=== PATIENT | male | born 1940 | race Caucasian/White ===

== ENCOUNTER 2017-11-19 15:48 | Inpatient (IN) | payer MEDICARE ==
[2017-11-19] MEDS ORDERED: Morphine INJ* 4 MG/ML 1 ML CARPUJECT IV ONE ×3 (18:14→19:57)
[2017-11-19] MEDS ORDERED: Ondansetron INJ* 2 MG/ML VIAL IV ONE ×2 (18:14→19:56)
--- NOTE | 2017-11-19 18:19 | ED ---
Abdominal Pain/Male - HPI Summary HPI Summary: This 77-year-old male presents with abdominal pain for 3 days. He states the pain started after he ate something spicy. He states it was a sharp pain and now is a constant pain. He has never had this pain before. He states he does not feel that there is a dialysis type pain. He states he does peritoneal dialysis every night. He has not missed any dialysis. He states the past week has been having diarrhea. He states his stools have been watery. He admits to nausea that started the past 3 days. He denies any vomiting. He admits to decrease in appetite. He denies any fevers. He denies any chest pain. His shortness of breath is unchanged from baseline. He denies any flank pain. He is able to make urine after self catheterize. He has been taking hydrocodone without relief. He had surgery for peritoneal catheter. He may have had his appendix removed when younger. He has PMH of ESRD, HTN. He is not diabetic. He has had a previous SBO. He has had a hernia repair in the past. - History of Current Complaint Chief Complaint: French Stated Complaint: ABD PAIN Time Seen by Provider: 11/19/17 17:50 Pain Intensity: 8 - Allergies/Home Medications Allergies/Adverse Reactions: Allergies Allergy/AdvReac Type Severity Reaction Status Date / Time MS Penicillins [Penicillins] Allergy Unknown Verified 11/20/15 18:57 Reaction Details Home Medications: Home Medications Lisinopril TAB* [Prinivil TAB*] 20 mg PO DAILY 11/19/17 [History Confirmed 11/19] Metoprolol Succinate XL TAB* [Toprol XL TAB*] 25 mg PO DAILY 11/19/17 [History Confirmed 11/19/17] Sodium Bicarbonate (ANTACID)* 650 mg PO TID PRN 11/19/17 [History Confirmed ] Zolpidem TAB* [Ambien TAB*] 10 mg PO BEDTIME PRN 11/19/17 [History Confirmed ] amLODIPine TAB* [Norvasc 5 mg TAB*] 2.5 mg PO DAILY 11/19/17 [History Confirmed 11/19/17] hydrOXYzine HCL TAB* [Atarax 25 MG TAB*] 25 mg PO QID PRN 11/19/17 [History Confirmed 11/19/17] PMH/Surg Hx/FS Hx/Imm Hx Endocrine/Hematology History: Denies: Hx Diabetes, Hx Thyroid Disease, Hx Unexplained Bleeding Cardiovascular History: Reports: Hx Hypertension, Other Cardiovascular Problems/ Disorders - states Afib on and off Denies: Hx Cardiac Arrest, Hx Cardiomegaly, Hx Congenital Heart Disease, Hx Congestive Heart Failure, Hx Coronary Artery Disease, Hx Hypercholesterolemia, Hx Hypotension, Hx Pacemaker/ICD, Hx Peripheral Vascular Disease, Hx Rheumatic Fever, Hx Syncope, Hx Valvular Heart Disease Respiratory History: Denies: Hx Asthma, Hx Chronic Bronchitis, Hx Chronic Obstructive Pulmonary Disease (COPD), Hx Cystic Fibrosis, Hx Lung Cancer, Hx Pleural Effusion, Hx Pneumonia, Hx Pulmonary Edema, Hx Pulmonary Embolism, Hx Seasonal Allergies, Hx Sleep Apnea, Other Respiratory Problems/Disorders GI History: Denies: Hx Cirrhosis, Hx Crohn's Disease, Hx Diverticulosis, Hx Gall Bladder Disease, Hx Gastroesophageal Reflux Disease, Hx Gastrointestinal Bleed, Hx Hiatal Hernia, Hx Irritable Bowel, Hx Jaundice, Hx Obstructive Bowel, Hx Ileostomy, Hx Pyloric Stenosis, Hx Ulcer, Other GI Disorders History: Reports: Hx Acute Renal Failure - PD dialysis, Hx Benign Prostatic Hyperplasia, Hx Dialysis, Hx Renal Disease, Other Problems/Disorders - obstructive uropathy Denies: Hx Chronic Renal Failure, Hx Kidney Infection, Hx Kidney Stones Musculoskeletal History: Denies: Hx Arthritis, Hx Osteoporosis Sensory History: Reports: Hx Contacts or Glasses Denies: Hx Cataracts, Hx Eye Injury, Hx Eye Prosthesis, Hx Glaucoma, Hx Macular Degeneration, Hx Vision Problem, Hx Deafness, Hx Hearing Aid, Hx Hearing Problem, Other Sensory Impairments Opthamlomology History: Reports: Hx Contacts or Glasses Denies: Hx Cataracts, Hx Eye Injury, Hx Eye Prosthesis, Hx Glaucoma, Hx Macular Degeneration, Hx Vision Problem, Other Sensory Impairments Neurological History: Denies: Hx Dementia, Hx Developmental Delay, Hx Headaches, Hx Migraine, Hx Seizures, Hx Spinal Cord Injury, Hx Transient Ischemic Attacks (TIA), Other Neuro Impairments/Disorders Psychiatric History: Reports: Hx Anxiety Denies: Hx Depression - Surgical History Surgery Procedure, Year, and Place: PD cath Hx Anesthesia Reactions: No Infectious Disease History: No Infectious Disease History: Denies: Hx Clostridium Difficile, Hx Hepatitis, Hx Human Immunodeficiency Virus (HIV), Hx Shingles, Hx Tuberculosis, Traveled Outside the [place] in Last 30 Days - Family History Known Family History: Positive: Hypertension - Social History Alcohol Use: None Substance Use Type: Reports: None Smoking Status (MU): Former Smoker Have You Smoked in the Last Year: No Review of Systems Negative: Fever Negative: Chest Pain Negative: Shortness Of Breath Positive: Abdominal Pain, Diarrhea, Nausea. Negative: Vomiting All Other Systems Reviewed And Are Negative: Yes Physical Exam Triage Information Reviewed: Yes Vital Signs On Initial Exam: Initial Vitals Temp Pulse Resp BP Pulse Ox 98.4 F 103 22 163/80 100 11/19/17 15:50 11/19/17 15:50 11/19/17 15:50 11/19/17 15:50 11/19/17 15:50 Vital Signs Reviewed: Yes Appearance: Positive: Well-Appearing Skin: Positive: Warm, Dry Head/Face: Positive: Normal Head/Face Inspection Eyes: Positive: Normal, EOMI, RUSS, Conjunctiva Clear ENT: Positive: Normal ENT inspection, Pharynx normal, TMs normal Neck: Positive: Supple, Nontender, No Lymphadenopathy Respiratory/Lung Sounds: Positive: Clear to Auscultation, Breath Sounds Present Cardiovascular: Positive: Normal, RRR Abdomen Description: Positive: Soft, Distended, Other: - tenderness greatest in LLQ wtih mild tenderness RLQ. Negative: Guarding Bowel Sounds: Positive: Present Musculoskeletal: Positive: Normal Neurological: Positive: Normal Psychiatric: Positive: Normal Diagnostics - Vital Signs Vital Signs Temp Pulse Resp BP Pulse Ox 11/19/17 15:50 98.4 F 103 22 163/80 100 - Laboratory Result Diagrams: 11/19/17 18:04 11/19/17 18:04 Lab Statement: Any lab studies that have been ordered have been reviewed, and results considered in the medical decision making process. - CT abd CT Interpretation: Positive (See Comments) - IMPRESSION: 1. RELATIVELY HIGH- GRADE DISTAL SMALL BOWEL OBSTRUCTION. 2. SMALL AMOUNT OF FREE INTRAPERITONEAL AIR LIKELY SECONDARY TO THE PATIENT'S PERITONEAL DIALYSIS CATHETER LESS LIKELY A RUPTURED VISCUS. 3. SMALL AMOUNT OF FREE INTRAPERITONEAL FLUID. 4. ENLARGED PROSTATE GLAND. CT Interpretation Completed By: Radiologist Abdominal Pain Fem Course/Dx - Course Course Of Treatment: This 77-year-old male presents with abdominal pain for 3 days. He states the pain started after he ate something spicy. He states it was a sharp pain and now is a constant pain. He has never had this pain before. He states he does not feel that there is a dialysis type pain. He states he does peritoneal dialysis every night. He has not missed any dialysis. He states the past week has been having diarrhea. He states his stools have been watery. He admits to nausea that started the past 3 days. He denies any vomiting. He admits to decrease in appetite. He denies any fevers. He denies any chest pain. His shortness of breath is unchanged from baseline. He denies any flank pain. He is able to make urine after self catheterize. He has been taking hydrocodone without relief. on exam has tenderness greatest LLQ and mild RLQ. spoke with dr Mckeon who said can precede with CT with oral and IV contrast. labs wbc 5.9. crp 35. h/h stable where has been. lipase is elevated than previously. kidney function is worst than previous. dr mcekon states that will have dialysis tomorrow as has not been eating. had dr giron evaulated patient and will place ng tube due to distention. no peritoneal signs on exam. dr duque will consults in morning. dr sanders agrees to admit. - Diagnoses Differential Diagnosis/HQI/PQRI: Appendicitis, Bowel Obstruction, Diverticulitis , Other - peritonitis Provider Diagnoses: ESRD on peritoneal dialysis, Small bowel obstruction Discharge - Discharge Plan Condition: Stable Disposition: ADMITTED TO [facility]
[2017-11-19 18:23] LABS: ABS Basophils 0 10^3/ul (0-0.2); ABS Eosinophils 0 10^3/ul (0-0.6); ABS Lymphocytes 0.2 10^3/ul (1.0-4.8); ABS Monocytes 0.6 10^3/ul (0-0.8); ABS Nucleated RBC 0 10^3/ul; Eosinophil % 0.3 % (0-6); Hematocrit 35 % (42-52); Hemoglobin 12.3 g/dl (14.0-18.0); Lymphocyte % 2.7 % (25-47); Mean Corpuscular HGB Conc 35 g/dl (31-36); Mean Corpuscular Hemoglobin 35 pg (27-31); Mean Corpuscular Volume 101 fL (80-94); Mean Platelet Volume 10 um3 (7.4-10.4); Nucleated Red Blood Cells % 0; Platelet Count 201 10^3/ul (150-450); Red Blood Count 3.49 10^6/ul (4.0-5.4); Red Cell Distribution Width 13 % (10.5-15); White Blood Count 5.9 10^3/ul (3.5-10.8)
[2017-11-19 18:34] LABS: EGFR Non-African American 6.1 (>60)
[2017-11-19] MEDS ORDERED: Ondansetron INJ* 2 MG/ML VIAL ONE (19:57)
[2017-11-19] MEDS ORDERED: Iodixanol* (CONTRAST) 320 MG/ML 100 ML SDV IV ONE (20:04)
[2017-11-19 20:24] LABS: Urine Appearance Clear; Urine Blood 1+ (Negative); Urine Color Yellow; Urine Ketones Negative (Negative); Urine Protein 1+(30 mg/dL) (Negative); Urine Specific Gravity 1.023 (1.010-1.030); Urine Urobilinogen Negative (Negative)
--- NOTE | 2017-11-19 20:56 | RAD ---
INDICATION: Lower abdominal pain. COMPARISON: Comparison is made with a prior CT of the abdomen and pelvis from November 21, 2015. TECHNIQUE: A CT scan of the abdomen and pelvis was performed with intravenous and without oral contrast following intravenous injection of 88 ml of Visipaque 320 nonionic contrast. Contiguous axial sections were obtained from the lung bases through the symphysis pubis. Images were reconstructed in the coronal and sagittal planes. FINDINGS: The lung bases are clear. No pleural effusion is present. The liver and spleen are normal in size. There is a small cyst in the superior portion of the right hepatic lobe measuring 0.7 cm in size which is unchanged. No calcified gallstones are seen. There is a small fatty density mass present within the pancreatic tail which is unchanged measuring 1.1 cm in size. The adrenal glands are within normal limits. The kidneys are severely atrophic. No hydronephrosis is present. The prostate gland is markedly enlarged measuring 6.2 x 7.7 cm in size indenting the inferior aspect of the latter. The aorta is normal in caliber with severe calcific plaque present. No significant enlarged retroperitoneal lymph nodes are seen. The stomach is mildly distended. There is moderate to severe dilatation of the proximal, mid and distal small bowel. The very distal small bowel is nondistended. There is a transition point in the right lower quadrant. The appendix is not well visualized. There is moderate descending and sigmoid diverticulosis without evidence for diverticulitis. There is a small left inguinal hernia containing fluid. There is a peritoneal dialysis catheter present in the left lower quadrant. There are several small bubbles of free intraperitoneal air present in the anterior upper abdomen. There is a small amount of free intraperitoneal fluid. No significant focal osseous abnormality is seen. IMPRESSION: 1. RELATIVELY HIGH-GRADE DISTAL SMALL BOWEL OBSTRUCTION. 2. SMALL AMOUNT OF FREE INTRAPERITONEAL AIR LIKELY SECONDARY TO THE PATIENT'S PERITONEAL DIALYSIS CATHETER LESS LIKELY A RUPTURED VISCUS. 3. SMALL AMOUNT OF FREE INTRAPERITONEAL FLUID. 4. ENLARGED PROSTATE GLAND.
[2017-11-19] MEDS ORDERED: Morphine INJ* 2 MG/ML 1 ML CARPUJECT IV PRN (21:33)
[2017-11-19] MEDS ORDERED: Metoprolol Tartrate IV* 1 MG/ML 5 ML VIAL IV PRN (21:51)
--- NOTE | 2017-11-19 23:26 | HP ---
CC: Juarez Ontiveros MD * HISTORY AND PHYSICAL: DATE OF ADMISSION: 11/19/17 TIME OF EVALUATION: 0. PRIMARY CARE PHYSICIAN: Juarez Ontiveros MD CHIEF COMPLAINT: Abdominal pain and nausea. HISTORY OF PRESENT ILLNESS: This is a 77-year-old male with a past medical history of small bowel obstruction, end-stage renal disease, and peritoneal dialysis who presents to the emergency room with 3 days of worsening abdominal pain, nausea, and retching. The patient has a remote history of small bowel obstruction back in 2001. For the past 3 days, he has had worsening abdominal pain, decreased appetite with nausea and retching, no actual vomiting. He states he has problems with liquid stool on and off for the past several years. His last liquid stool was yesterday, no output today. He has lost about 5 pounds in the past 6 months and 40 pounds over the past 5 years. He has some shortness of breath. No chest pain. No fever. No recent URI illness. He does still make small amount of urine. Otherwise review of systems is negative. In the emergency room, the patient had labs and imaging and was found to have bowel obstruction. Dr. Tijerina was called, he recommended NG tube placement and follow up in the morning and Dr. Ontiveros was notified and recommended holding peritoneal dialysis this evening and will follow up tomorrow. In the emergency room, the patient had 8 mg of morphine and was referred to the hospital service for further evaluation. PAST MEDICAL HISTORY: 1. History of a small bowel obstruction in 2001. 2. History of end-stage renal disease, on peritoneal dialysis followed by Dr. Ontiveros. 3. History of obstructive uropathy with BPH. 4. Hypertension. 5. Irritable bowel syndrome. 6. Anxiety. PAST SURGICAL HISTORY: He has had a peritoneal catheter placed 2 times in the past 5 years. He has a history of hernia repair. MEDICATIONS: 1. Vitamin B complex with folic acid 1 tab p.o. at bedtime. 2. Sodium bicarb 650 mg 3 times a day as needed. 3. Lisinopril 20 mg daily. 4. Metoprolol succinate XL 25 mg p.o. daily. 5. Hydroxyzine 25 mg p.o. q.i.d. as needed. 6. Amlodipine 2.5 mg p.o. daily. 7. Ambien 10 mg at bedtime as needed. 8. Lorazepam 1 mg 4 times a day as needed. ALLERGIES: PENICILLIN. FAMILY HISTORY: Mother from failure to thrive. Father from Alzheimer. SOCIAL HISTORY: The patient lives at home with his , Jose D Bonner, who is his health care proxy. He has 2 grown children. He quit smoking more than 30 years ago. No alcohol or illicit drug use. He is a retired property management bookkeeper. When reviewing his code status, he would like to be a DNR/DNI. His MOLST form will be completed this evening. REVIEW OF SYSTEMS: A 14-point review of systems as mentioned in the HPI, otherwise is negative. PHYSICAL EXAMINATION GENERAL: Some mild discomfort, in no acute distress. is at the bedside. VITAL SIGNS: Temp 98.4, pulse rate 90, respiratory rate 16, oxygen saturation 100% on room air, and blood pressure 147/83. HEENT: Head normocephalic. Pupils are equal, round, and reactive. Oropharynx clear. Mucous membranes dry. NECK: Supple. No adenopathy. No nuchal rigidity. RESPIRATORY: Diminished breath sounds. No wheezes, rhonchi, or rales. CARDIAC: Regular, rate, and rhythm. Soft systolic murmur heard throughout. ABDOMEN: Unable to appreciate any bowel sounds, distention, firm and mainly tenderness in the periumbilical region peritoneal dialysis, there was no surrounding erythema or drainage. EXTREMITIES: Trace edema. NEUROLOGIC: Alert, awake, and oriented x3. No gross focal neurologic deficits. LABORATORY DATA: White count 5.9, hemoglobin 12.3, hematocrit 35, platelets 201, INR was 1.07. Sodium 130, potassium 5.1, chloride 96, bicarb 22, BUN 73, creatinine 0.55, glucose 152. CRP is 35, lipase is 125. Urinalysis shows squamous cells, blood. His peritoneal fluid, 105 white cells. Gram-stain shows no organisms. RADIOGRAPHIC DATA: Abdominal and pelvic CT, relatively high-grade distal small bowel obstruction. Small amount of free intraperitoneal air likely secondary to the patient's peritoneal dialysis catheter, less likely a ruptured viscus. Small amount of free intraperitoneal fluid. Enlarged prostate gland. ASSESSMENT: This is a 77-year-old male with a past medical history of small bowel obstruction and end-stage renal disease on peritoneal dialysis, presents to the emergency room with worsening abdominal pain and nausea, found to have a small bowel obstruction. 1. Abdominal pain and nausea. Assessment: The patient's history and physical is most consistent with small bowel obstruction. I do not feel this is spontaneous bacterial peritonitis. He has no white counts, CRP is low, no fever and his fluid is unremarkable. NG tube was placed in the emergency room with 300 output immediately came out. Plan: We will admit him to short stay, place him on gentle IV fluids. Pain control, keep him n.p.o. and follow up with Surgery. In the morning, we will repeat an abdominal film as well and repeat his labs. 2. End-stage renal disease, on peritoneal dialysis. Assessment: As mentioned , there does not appear to be an infectious etiology related to his peritoneal catheter. Dr. Ontiveros to see in the morning and to resume his dialysis in the morning. The brought in his fluid to be used. CHRONIC MEDICAL PROBLEMS: 1. History of BPH. We will bladder scan him in the setting of getting some gentle fluid and make sure there is no urinary retention contributing to his issues. We will hold his oral agents. We will place him on Lopressor as needed and Ativan as needed IV. 2. DVT prophylaxis. The patient is of course at high risk. Place him on heparin subcu t.i.d. 3. Code status. The patient states he is a DNR/DNI. We will have a MOLST form completed this evening. 4. FEN. N.p.o. with gentle IV fluids and ice chips. PATIENT TIME: Greater than 65 minutes spent doing the history and physical, more than half the time spent in direct patient contact. [id number]/HEATHER #: [id number] POLLO
[2017-11-19] MEDS: Ondansetron INJ* 2 MG/ML VIAL IV PRN (23:49)
[2017-11-19] MEDS: Heparin VIAL(*) 5000 UNITS/ML VIAL (FIVE THOUSAND) SUBCUT SCH (23:51)
[2017-11-19] MEDS: NS 0.9% 1000 ML* 1,000 ML IV SCH (23:54)
[2017-11-20] MEDS: Morphine INJ* 2 MG/ML 1 ML SYRINGE (TWO MG - NEW SYRINGE VERSION) IV PRN ×2 (01:40→05:54)
[2017-11-20] MEDS: LORazepam INJ* 2 MG/ML 1 ML VIAL IV PUSH PRN ×3 (02:02→15:57)
--- NOTE | 2017-11-20 04:21 | PN ---
Progress Note - Progress Note Date of Service: 11/20/17 Note: Bladder scan q6 ordered - patient straight cath's at home as needed.
[2017-11-20 04:56] LABS: Hematocrit 34 % (42-52); Hemoglobin 11.8 g/dl (14.0-18.0); Mean Corpuscular HGB Conc 34 g/dl (31-36); Mean Corpuscular Hemoglobin 35 pg (27-31); Mean Corpuscular Volume 101 fL (80-94); Mean Platelet Volume 10 um3 (7.4-10.4); Platelet Count 188 10^3/ul (150-450); Red Blood Count 3.39 10^6/ul (4.0-5.4); Red Cell Distribution Width 14 % (10.5-15); White Blood Count 1.9 10^3/ul (3.5-10.8)
[2017-11-20 05:10] LABS: EGFR Non-African American 5.3 (>60)
[2017-11-20 05:49] LABS: ABS Basophils 0 10^3/ul (0-0.2); ABS Eosinophils 0 10^3/ul (0-0.6); ABS Lymphocytes 0.2 10^3/ul (1.0-4.8); ABS Monocytes 0.4 10^3/ul (0-0.8); ABS Neutrophils 1.2 10^3/ul (1.5-7.7); ABS Nucleated RBC 0 10^3/ul; Eosinophil % 1.6 % (0-6); Lymphocyte % 11.3 % (25-47); Nucleated Red Blood Cells % 0.2
[2017-11-20] MEDS: Ondansetron INJ* 2 MG/ML VIAL IV PRN (05:55)
[2017-11-20] MEDS: Heparin VIAL(*) 5000 UNITS/ML VIAL (FIVE THOUSAND) SUBCUT SCH ×3 (05:56→23:02)
--- NOTE | 2017-11-20 07:35 | RAD ---
HISTORY: NG tube placement COMPARISONS: November 19, 2015 VIEWS: 1: frontal portable view of the chest at 10:14 PM FINDINGS: LINES AND TUBES: A gastric tube is noted, with the tip in the left upper quadrant in a prepyloric position.. CARDIOMEDIASTINAL SILHOUETTE: The cardiomediastinal silhouette is normal for portable technique. PLEURA: The costophrenic angles are sharp. No pleural abnormalities are noted. LUNG PARENCHYMA: The lungs are clear. ABDOMEN: There are dilated loops of small bowel in the upper abdomen. There is no appreciable subphrenic gas. BONES AND SOFT TISSUES: No bone or soft tissue abnormalities are noted. IMPRESSION: LINES AND TUBES ABOVE. DILATED LOOPS OF SMALL BOWEL IN THE UPPER ABDOMEN. NO ACTIVE CARDIOPULMONARY DISEASE.
--- NOTE | 2017-11-20 08:24 | PN ---
Hospitalist Progress Note Date of Service: 11/20/17 Called by RN for fever to 101 and HR 100. Check stat blood cultures Will follow up peritoneal fluid cultures Continue IVF Start empiric broad spectrum antibiotics with peritoneum being the most likely source.
[2017-11-20] MEDS ORDERED: Vancomycin(*) 750 MG in NS 0.9% 250 ML* 250 ML IVPB ONE (08:30)
[2017-11-20] MEDS ORDERED: Ciprofloxacin 400MG IVPREMIX(* 400 MG/200 ML BAG IVPB SCH (09:00)
--- NOTE | 2017-11-20 10:26 | RAD ---
HISTORY: Small bowel obstruction, follow-up COMPARISONS: None VIEWS: Frontal views of the abdomen. FINDINGS: BOWEL: There is persistence distention dilatation of small bowel loops. Gas is noted within the proximal colon. CALCULI: There are no abnormal calculi. BONES AND SOFT TISSUES: Degenerative changes are noted. There is peripheral arterial calcification. OTHER FINDINGS: The lung bases are not well visualized. Excreted contrast is noted within the gallbladder and urinary bladder. There is no subphrenic gas. A gastric tube is noted in a prepyloric position. A peritoneal dialysis catheter is noted within the left lower quadrant. IMPRESSION: PERSISTENT SMALL BOWEL OBSTRUCTION
[2017-11-20] MEDS ORDERED: Ciprofloxacin 200mg IVPREMIX(* 200 MG/100 ML BAG IV SCH (10:30)
[2017-11-20] MEDS ORDERED: Vancomycin(*) 750 MG in NS 0.9% 250 ML* 250 ML IVPB PRN (11:22)
[2017-11-20] MEDS ORDERED: Zolpidem TAB* 10 MG PO PRN (11:25)
[2017-11-20] MEDS ORDERED: Zolpidem TAB* 5 MG PO PRN (11:33)
--- NOTE | 2017-11-20 14:36 | PN ---
Progress Note - Progress Note Date of Service: 11/20/17 Note: Brief Surgery Note (full consult dictated): S: asked to see this 77 yo HTN-heide male on chronic PD for ESRD w/ past hx of SBO (resolved w/ conservative tx) w/ 3 d of abd pain, bloating, N&V. He's not had any stool of late, but is passing small amts of flatus. His pain level is currently "discomfort", down from 10/10 pain. He states his recent dialysis effluent has been clear. He's not had any hx of peritonitis, though is currently having fever and tachycardia. Current Medications Heparin Sodium (Porcine) (Heparin Vial(*)) 5,000 units SUBCUT Q8HR GRECIA Last Admin: 11/20/17 14:29 Dose: 5,000 units Sodium Chloride (Ns 0.9% 1000 Ml*) 1,000 mls @ 75 mls/hr IV PER RATE [facility] Last Admin: 11/19/17 23:54 Dose: 75 mls/hr Vancomycin HCl 750 mg/ Sodium (Chloride) 250 mls @ 166.667 mls/hr IVPB DAILY PRN PRN Reason: RANDOM VANCO LEVEL < 20 Ciprofloxacin/Dextrose (Cipro 200 Mg Ivpremix(*)) 200 mg in 100 mls @ 100 mls/ hr IV Q12HR@0000,1200 [facility] Lorazepam (Ativan Inj*) 0.5 mg IV PUSH Q4H PRN PRN Reason: ANXIETY Last Admin: 11/20/17 11:50 Dose: 0.5 mg Metoprolol Tartrate (Lopressor Iv*) 5 mg IV Q6H PRN PRN Reason: BLOOD PRESSURE Morphine Sulfate (Morphine Inj (Syringe)*) 2 mg IV Q4H PRN PRN Reason: PAIN Last Admin: 11/20/17 05:54 Dose: 2 mg Ondansetron HCl (Zofran Inj*) 4 mg IV Q4H PRN PRN Reason: NAUSEA/VOMITING Last Admin: 11/20/17 05:55 Dose: 4 mg Pharmacy Consult (Vancomycin Random Level*) 1 note FOLLOW UP DAILY [facility] Zolpidem Tartrate (Ambien Tab*) 5 mg PO BEDTIME PRN PRN Reason: SLEEP O: Vital Signs - 8 hr 11/20/17 11/20/17 11/20/17 07:17 07:29 07:41 Temperature 101.0 F Pulse Rate 110 Respiratory 18 18 18 Rate Blood Pressure 156/80 (mmHg) O2 Sat by Pulse 99 Oximetry 11/20/17 11/20/17 11/20/17 11:31 11:50 13:05 Temperature 99.8 F Pulse Rate 98 Respiratory 18 18 18 Rate Blood Pressure 142/62 (mmHg) O2 Sat by Pulse 97 Oximetry Gen: WN WD male in NAD, w/ eyes closed most of the time during our interview Heart: reg; sys murmur Lungs: clear Abd: PD cath LLQ; distended, tympanitic; BS (normoactive); soft; mild to mod diffuse tenderness; no peritoneal signs; no appreciable Left inguinal hernia in supine position (see CT report) Extr: no edema Labs: Laboratory Tests 11/19/17 11/20/17 18:04 04:38 WBC 5.9 1.9 L Hgb 12.3 L 11.8 L MCV 101 H Neut % (Auto) 85.[address] reviewed personally as well as report; also AXR from today A: SBO; concern re: fever/tachy (peritoneal fluid cx pend; gram stain + neut, - organisms) P: patient states he does not want surgery, which I don't believe is yet indicated based on current clinical picture, though he understands that it may be recommended if worsening systemic signs or change in exam. Otherwise we will continue to follow. Will d/w Dr. Villafana.
[2017-11-20] MEDS: NS 0.9% 1000 ML* 1,000 ML IV SCH (15:19)
--- NOTE | 2017-11-20 17:57 | PN ---
Subjective Date of Service: 11/20/17 Interval History: Had not yet received PD when I saw him this morning, so was feeling "loopy." His is at the bedside. He has no nausea or abdominal pain but complains of pain at the NG tube. Family History: Unchanged from Admission Social History: Unchanged from Admission Past Medical History: Unchanged from Admission Objective Active Medications: Heparin Sodium (Porcine) (Heparin Vial(*)) 5,000 units SUBCUT Q8HR [facility] Last Admin: 11/20/17 14:29 Dose: 5,000 units Sodium Chloride (Ns 0.9% 1000 Ml*) 1,000 mls @ 75 mls/hr IV PER RATE [facility] Last Admin: 11/20/17 15:19 Dose: 75 mls/hr Vancomycin HCl 750 mg/ Sodium (Chloride) 250 mls @ 166.667 mls/hr IVPB DAILY PRN PRN Reason: RANDOM VANCO LEVEL < 20 Ciprofloxacin/Dextrose (Cipro 200 Mg Ivpremix(*)) 200 mg in 100 mls @ 100 mls/ hr IV Q12HR@0000,1200 [facility] Lorazepam (Ativan Inj*) 0.5 mg IV PUSH Q4H PRN PRN Reason: ANXIETY Last Admin: 11/20/17 15:57 Dose: 0.5 mg Metoprolol Tartrate (Lopressor Iv*) 5 mg IV Q6H PRN PRN Reason: BLOOD PRESSURE Morphine Sulfate (Morphine Inj (Syringe)*) 2 mg IV Q4H PRN PRN Reason: PAIN Last Admin: 11/20/17 05:54 Dose: 2 mg Ondansetron HCl (Zofran Inj*) 4 mg IV Q4H PRN PRN Reason: NAUSEA/VOMITING Last Admin: 11/20/17 05:55 Dose: 4 mg Pharmacy Consult (Vancomycin Random Level*) 1 note FOLLOW UP DAILY [facility] Zolpidem Tartrate (Ambien Tab*) 5 mg PO BEDTIME PRN PRN Reason: SLEEP Vital Signs - 8 hr 11/20/17 11/20/17 11/20/17 11:31 11:50 13:05 Temperature 99.8 F Pulse Rate 98 Respiratory 18 18 18 Rate Blood Pressure 142/62 (mmHg) O2 Sat by Pulse 97 Oximetry 11/20/17 15:57 Temperature Pulse Rate Respiratory 18 Rate Blood Pressure (mmHg) O2 Sat by Pulse Oximetry Oxygen Devices in Use Now: None Appearance: nontoxic, no distress, drowsy Eyes: No Scleral Icterus Ears/Nose/Mouth/Throat: NL Teeth, Lips, Gums Neck: NL Appearance and Movements; NL JVP Respiratory: Symmetrical Chest Expansion and Respiratory Effort, Clear to Auscultation Cardiovascular: NL Sounds; No Murmurs; No JVD, RRR Abdominal: - - distended, soft, mildly tender diffusely, PD catheter in LLQ, no guarding Lymphatic: No Cervical Adenopathy Extremities: No Edema Skin: No Rash or Ulcers Result Diagrams: 11/20/17 04:38 11/20/17 04:39 Assess/Plan/Problems-Billing Assessment: 77 yo M on PD admitted with abdominal pain and found to have SBO, now with sepsis. - Patient Problems (1) SBO (small bowel obstruction) Current Visit: Yes Status: Acute Code(s): K56.609 - UNSP INTESTNL OBST, UNSP TO PARTIAL VERSUS COMPLETE OBST SNOMED Code(s): 000523349 Comment: He has history of inguinal hernia repair and PD catheter insertion, both of which may be the nidus for sbo, versus peritonitis. He is not on meds that should cause a functional sbo or ileus. NGT with green output. No flatus or bowel movement. Continue NPO, bowel, rest, NGT, and repeat KUB in the morning. (2) Sepsis Current Visit: Yes Status: Acute Comment: Unclear source, but peritoneum is most likely. Peritoneal fluid sent for culture, awaiting results; broad spectrum abx started this morning. Blood cultures sent. Volume resuscitated and hemodynamically stable. (3) DVT prophylaxis Current Visit: No Status: Acute Code(s): AIK3073 - SNOMED Code(s): 295470553 Comment: SQ heparin (4) ESRD on peritoneal dialysis Current Visit: No Status: Acute Code(s): N18.6 - END STAGE RENAL DISEASE; Z99.2 - DEPENDENCE ON RENAL DIALYSIS SNOMED Code(s): 44852684 Comment: DC IVF. Dr. Ontiveros following. (5) HTN (hypertension) Current Visit: No Status: Acute Code(s): I10 - ESSENTIAL (PRIMARY) HYPERTENSION SNOMED Code(s): 54392242 Comment: acceptable (6) Anxiety Current Visit: Yes Status: Acute Code(s): F41.9 - ANXIETY DISORDER, UNSPECIFIED SNOMED Code(s): 62418570 Comment: continue prn ativan (IV due to npo)
[2017-11-20] MEDS ORDERED: Heparin DIALYSIS ONLY(*) 1,000 UNITS/ML VIAL DIALYSIS ONE (18:00)
[2017-11-20] MEDS ORDERED: Morphine INJ* 2 MG/ML 1 ML CARPUJECT IV PRN (19:00)
--- NOTE | 2017-11-20 21:10 | CONS ---
CC: Dr. Juarez Ontiveros * SURGICAL CONSULT NOTE: DATE OF CONSULT: 11/20/17 ATTENDING SURGEON: Dr. Michael Villafana. CHIEF COMPLAINT: Small bowel obstruction. HISTORY OF PRESENT ILLNESS: This is a 77-year-old hypertensive male, on chronic peritoneal dialysis for end-stage renal disease, who presented with a 3 - day history of abdominal pain, bloating, nausea, and vomiting. He points to the center of the abdomen as the area of pain, though states that it involves the entire abdomen. He denies vomiting since admission (an NG tube was placed) . He describes only having abdominal discomfort today as opposed to 10/10 abdominal pain in recent days. He has continued to pass small amounts of flatus , though no stool since admission. He had a prior similar episode 4 to 5 years ago that was treated conservatively. He mentions at the end of our interview that he is not interested in surgery, though is willing for us to follow him. In the last 24 hours, the patient has been noted to have fever up to 101 and tachycardia. He has no prior history of peritonitis. His dialysis effluent has been clear. PAST MEDICAL HISTORY: End-stage renal disease (on chronic peritoneal dialysis) ; hypertension; history of obstructive uropathy with BPH; anxiety; history of SBO, treated conservatively. PAST SURGICAL HISTORY: Peritoneal dialysis catheter, right inguinal hernia repair (details unknown by the patient other than that it was done at the [facility]). CURRENT MEDICATIONS: (The patient unwilling to review with me; list obtained from his chart record). 1. Amlodipine 5 mg one-half tablet once daily. 2. Metoprolol XL 50 mg one-half tablet once daily. 3. Lisinopril 10 mg 2 tablets once daily. 4. Lorazepam 1 mg 4 times a day p.r.n. 5. Rajni-Adrian once daily. 6. Zolpidem 10 mg q.h.s. p.r.n. 7. Sodium bicarbonate 650 mg t.i.d. p.r.n. 8. Hydroxyzine 25 mg 4 times a day p.r.n. DRUG ALLERGIES: None known. FAMILY HISTORY: Negative for anesthesia problems, bleeding or clotting disorders. SOCIAL HISTORY: The patient is . He is retired from real estate work. He is a former smoker, who quit 30 years ago. He denies use of alcohol or recreational drugs. REVIEW OF SYSTEMS: General: No recent constitutional symptoms or acute illnesses other than described in the HPI. Cardiovascular: History of hypertension, known heart murmur. No history of HI, angina, chest pain, or palpitations. Respiratory: No history of asthma, chronic cough, or shortness of breath. GI: As above per HPI. He has never had a screening colonoscopy nor is he interested. No recent changes in stools other than per the HPI. : As above. He does still make urine and self catheterizes daily. Endocrine: No diabetes or thyroid dysfunction. PHYSICAL EXAM: Height 5 feet 11 inches, weight 152 pounds. T-max 101, currently 99.8; blood pressure 142/62; pulse ranging from 96 to 107; respirations 18; room air saturation 97%. General: Well-nourished, well appearing male, in no acute distress. He closes his eyes most of the time during our interview and exam, but is appropriately responsive to questions. Skin: Warm and dry. No rashes or lesions noted. HEENT: Conjunctivae are pink. Oropharynx: Mucous membranes slightly dry. Neck: No lymphadenopathy or thyromegaly. Heart: Regular rate and rhythm. There is a systolic murmur heard best at the apex. Lungs: Clear to auscultation. No rales or wheezes. Abdomen: Distended, tympanitic. Bowel sounds present (normoactive). Peritoneal dialysis catheter, which exits from the left lower quadrant. Soft with mild diffuse tenderness throughout the abdomen. No palpable masses. No peritoneal signs. No palpable inguinal hernia (see separate CT report). No hernia noted on the right, difficult to tell if that was done as an open procedure. Genitalia and rectal: Not done. Extremities: No edema. Neurological: Grossly intact. DIAGNOSTIC STUDIES/LAB DATA: White blood cell count on admission 5.9, down this morning to 1.9. There is a left shift. Hemoglobin 11.8. His indices indicate macrocytic anemia. Electrolytes notable for a sodium of 131, chloride of 97, potassium of 5.1, phosphorus is 5.5, CRP 35. CT scan of the abdomen and pelvis on 11/19/17 was reviewed personally and with Dr. Villafana. The report was also reviewed. It is notable for bilateral renal atrophy, marked prostatic hypertrophy, moderate aortoiliac calcific occlusive arterial disease, mild gastric distention, and [id number] small bowel distention with an apparent transition zone in the right lower quadrant. There are decompressed distal small bowel loops. There is moderate sigmoid diverticulosis without evidence of diverticulitis, a small fluid- filled left inguinal hernia was noted , and there was a small amount of free air as well as free fluid noted. Plain film of the abdomen from today showed persistent dilated small bowel loops. There was some air in the proximal colon. IMPRESSION: Small bowel obstruction with concerns regarding his fever and tachycardia. He is currently receiving vancomycin and Cipro for possible peritonitis. As regards to small bowel obstruction, there are no peritoneal signs and he has active bowel sounds with passage of flatus. He has also stated that he is not interested in surgery. PLAN: We will follow with you but at this point no recommendation for surgical intervention which the patient at the present time refuses anyway. BECKY GANNON [id number]/[facility] #: [id number] POLLO
[2017-11-20] MEDS: Ciprofloxacin 200mg IVPREMIX(* 200 MG/100 ML BAG IV SCH (23:09)
[2017-11-21] MEDS: LORazepam INJ* 2 MG/ML 1 ML VIAL IV PUSH PRN ×3 (00:51→14:23)
[2017-11-21 05:53] LABS: Hematocrit 31 % (42-52); Hemoglobin 10.8 g/dl (14.0-18.0); Mean Corpuscular HGB Conc 35 g/dl (31-36); Mean Corpuscular Hemoglobin 35 pg (27-31); Mean Corpuscular Volume 101 fL (80-94); Mean Platelet Volume 10 um3 (7.4-10.4); Platelet Count 162 10^3/ul (150-450); Red Blood Count 3.09 10^6/ul (4.0-5.4); Red Cell Distribution Width 13 % (10.5-15); White Blood Count 4.3 10^3/ul (3.5-10.8)
[2017-11-21 06:00] LABS: ABS Basophils 0 10^3/ul (0-0.2); ABS Eosinophils 0.1 10^3/ul (0-0.6); ABS Lymphocytes 0.6 10^3/ul (1.0-4.8); ABS Monocytes 0.9 10^3/ul (0-0.8); ABS Neutrophils 2.6 10^3/ul (1.5-7.7); ABS Nucleated RBC 0 10^3/ul; Eosinophil % 1.3 % (0-6); Lymphocyte % 14.7 % (25-47); Nucleated Red Blood Cells % 0
[2017-11-21 06:08] LABS: EGFR Non-African American 4.4 (>60)
[2017-11-21] MEDS: Heparin VIAL(*) 5000 UNITS/ML VIAL (FIVE THOUSAND) SUBCUT SCH ×3 (06:54→21:56)
[2017-11-21] MEDS: Vancomycin Random Level* NOTE FOLLOW UP SCH ×2 (07:00→10:20)
--- NOTE | 2017-11-21 09:36 | RAD ---
INDICATION: Small bowel obstruction COMPARISON: November 20, 2017 TECHNIQUE: A single view of the abdomen is submitted. FINDINGS: Bones: There are no acute bony findings. Soft tissues: The soft tissues appear normal. The psoas margins are sharp. Bowel gas pattern: There is a resolving small bowel obstruction. There are several mildly prominent air-filled loops of small bowel but there is no air within the colon Calcifications: There are no abnormal calcifications. Other: None IMPRESSION: FINDINGS COMPATIBLE WITH RESOLVING SMALL BOWEL OBSTRUCTION.
--- NOTE | 2017-11-21 11:12 | PN ---
Progress Note - Progress Note Date of Service: 11/21/17 SOAP: Subjective: Reports feeling much better today. Less bloated, feels hungry, denies nausea or vomiting. Asked for no more x-rays or surgery involved. Objective: Awake and alert, comfortable and in NAD VSS, afebrile Abdomen soft, less distended, NT. AXR reviewed, SBO resolving NG output 1,150cc since insertion Assessment: Resolving SBO Plan: Trial for clamped NG tube If low output, will d/c NG later and resume diet
[2017-11-21] MEDS: Ciprofloxacin 200mg IVPREMIX(* 200 MG/100 ML BAG IV SCH ×2 (12:01→23:28)
--- NOTE | 2017-11-21 17:01 | PN ---
Subjective Date of Service: 11/21/17 Interval History: Bothered by the NG tube, but abdomen feels better. No pain, nausea, vomiting. His is at the bedside Family History: Unchanged from Admission Social History: Unchanged from Admission Past Medical History: Unchanged from Admission Objective Active Medications: Heparin Sodium (Porcine) (Heparin Vial(*)) 5,000 units SUBCUT Q8HR [facility] Last Admin: 11/21/17 14:16 Dose: 5,000 units Vancomycin HCl 750 mg/ Sodium (Chloride) 250 mls @ 166.667 mls/hr IVPB DAILY PRN PRN Reason: RANDOM VANCO LEVEL < 20 Last Admin: 11/21/17 10:16 Dose: 166.667 mls/hr Ciprofloxacin/Dextrose (Cipro 200 Mg Ivpremix(*)) 200 mg in 100 mls @ 100 mls/ hr IV Q12HR@0000,1200 [facility] Last Admin: 11/21/17 12:01 Dose: 100 mls/hr Lorazepam (Ativan Inj*) 0.5 mg IV PUSH Q4H PRN PRN Reason: ANXIETY Last Admin: 11/21/17 14:23 Dose: 0.5 mg Metoprolol Tartrate (Lopressor Iv*) 5 mg IV Q6H PRN PRN Reason: BLOOD PRESSURE Morphine Sulfate (Morphine Inj (Syringe)*) 2 mg IV Q4H PRN PRN Reason: PAIN Ondansetron HCl (Zofran Inj*) 4 mg IV Q4H PRN PRN Reason: NAUSEA/VOMITING Last Admin: 11/20/17 05:55 Dose: 4 mg Pharmacy Consult (Vancomycin Random Level*) 1 note FOLLOW UP DAILY [facility] Last Admin: 11/21/17 10:20 Dose: 1 note Zolpidem Tartrate (Ambien Tab*) 5 mg PO BEDTIME PRN PRN Reason: SLEEP Vital Signs - 8 hr 11/21/17 11/21/17 11/21/17 11:30 14:23 15:59 Temperature 99.4 F Pulse Rate 98 Respiratory 18 18 18 Rate Blood Pressure 131/61 (mmHg) O2 Sat by Pulse 95 Oximetry Oxygen Devices in Use Now: None Appearance: no distress, nontoxic Eyes: No Scleral Icterus Ears/Nose/Mouth/Throat: NL Teeth, Lips, Gums Neck: NL Appearance and Movements; NL JVP Respiratory: Symmetrical Chest Expansion and Respiratory Effort, Clear to Auscultation Cardiovascular: NL Sounds; No Murmurs; No JVD, RRR Abdominal: - - PD catheter LLQ. Distension improved from yesterday. Bowel sounds hyperactive. Nontender, no guarding or rigidity Result Diagrams: 11/21/17 05:42 11/21/17 05:42 Microbiology and Other Data: Microbiology 11/20/17 08:41 Aerobic Blood Culture - Preliminary Blood Venous No Growth Day 1 Anaerobic Blood Culture - Preliminary No Growth Day 1 11/21/17 08:30 Influenza Types A,B Antigen (MERY) - Final Nasal Specimen received for Influenza A/B Molecular testing 11/20/17 04:39 Aerobic Blood Culture - Preliminary Blood Venous No Growth Day 1 Anaerobic Blood Culture - Preliminary No Growth Day 1 Assess/Plan/Problems-Billing Assessment: 77 yo M on PD admitted with abdominal pain and found to have SBO, now with sepsis. - Patient Problems (1) SBO (small bowel obstruction) Current Visit: Yes Status: Acute Code(s): K56.609 - UNSP INTESTNL OBST, UNSP TO PARTIAL VERSUS COMPLETE OBST SNOMED Code(s): 323996607 Comment: Improving both clinically and radiographically. Plan to clamp tube today and check residual; may be able to trial liquids today po. Surgery following. (2) Sepsis Current Visit: Yes Status: Acute Comment: Evolving since admission. Fever curve decreasing today. Treating empirically with cipro/vancomycin. So far, blood and peritoneal fluid cultures are negative; awaiting UA (makes some urine) . Flu swab also pending. (3) DVT prophylaxis Current Visit: No Status: Acute Code(s): ONC3548 - SNOMED Code(s): 457079045 Comment: SQ heparin (4) ESRD on peritoneal dialysis Current Visit: No Status: Acute Code(s): N18.6 - END STAGE RENAL DISEASE; Z99.2 - DEPENDENCE ON RENAL DIALYSIS SNOMED Code(s): 56308887 Comment: Dr. Ontiveros following. (5) HTN (hypertension) Current Visit: No Status: Acute Code(s): I10 - ESSENTIAL (PRIMARY) HYPERTENSION SNOMED Code(s): 47697100 Comment: acceptable (6) Anxiety Current Visit: Yes Status: Acute Code(s): F41.9 - ANXIETY DISORDER, UNSPECIFIED SNOMED Code(s): 11305367 Comment: continue prn ativan (IV due to npo)
[2017-11-21] MEDS: Mupirocin 2% OINT* TUBE TOPICAL SCH (17:51)
[2017-11-21 23:37] LABS: Urine Appearance Clear; Urine Blood 2+ (Negative); Urine Color Yellow; Urine Ketones Negative (Negative); Urine Protein 2+(100 mg/dL) (Negative); Urine Specific Gravity 1.034 (1.010-1.030); Urine Urobilinogen Negative (Negative)
[2017-11-22] MEDS: Heparin VIAL(*) 5000 UNITS/ML VIAL (FIVE THOUSAND) SUBCUT SCH ×2 (06:18→14:24)
[2017-11-22 06:21] LABS: ABS Basophils 0 10^3/ul (0-0.2); ABS Eosinophils 0.4 10^3/ul (0-0.6); ABS Monocytes 1.1 10^3/ul (0-0.8); ABS Neutrophils 2.8 10^3/ul (1.5-7.7); ABS Nucleated RBC 0 10^3/ul; Eosinophil % 7.1 % (0-6); Hematocrit 32 % (42-52); Hemoglobin 10.9 g/dl (14.0-18.0); Lymphocyte % 19.3 % (25-47); Mean Corpuscular HGB Conc 34 g/dl (31-36); Mean Corpuscular Hemoglobin 35 pg (27-31); Mean Corpuscular Volume 102 fL (80-94); Mean Platelet Volume 10 um3 (7.4-10.4); Nucleated Red Blood Cells % 0; Platelet Count 171 10^3/ul (150-450); Red Blood Count 3.15 10^6/ul (4.0-5.4); Red Cell Distribution Width 14 % (10.5-15); White Blood Count 5.4 10^3/ul (3.5-10.8)
[2017-11-22 06:38] LABS: EGFR Non-African American 4.4 (>60)
[2017-11-22] MEDS: Vancomycin Random Level* NOTE FOLLOW UP SCH (08:41)
[2017-11-22] MEDS: Mupirocin 2% OINT* TUBE TOPICAL SCH (10:36)
[2017-11-22] MEDS ORDERED: LORazepam TAB(*) 1 MG PO PRN (10:43)
[2017-11-22 10:53] VITALS: BP 122/84
[2017-11-22] MEDS: Ciprofloxacin 200mg IVPREMIX(* 200 MG/100 ML BAG IV SCH (12:29)
--- NOTE | 2017-11-23 00:10 | DS ---
CC: Dr. Ontiveros * DISCHARGE SUMMARY: DATE OF ADMISSION: 11/19/17 DATE OF DISCHARGE: 11/22/17 PRINCIPLE DISCHARGE DIAGNOSIS: Small bowel obstruction. SECONDARY DISCHARGE DIAGNOSES: 1. End-stage renal disease, on peritoneal dialysis. 2. Sepsis. 3. Anxiety. DISCHARGE MEDICATIONS: 1. Lorazepam 1 mg p.o. 4 times a day p.r.n. 2. Lisinopril 20 mg daily. 3. Metoprolol XL 25 mg daily. 4. Hydroxyzine 25 mg 4 times a day p.r.n. 5. Amlodipine 2.5 mg daily. 6. Zolpidem 10 mg q.h.s. p.r.n. 7. Ciprofloxacin 250 mg daily for 3 more days. PHYSICAL EXAM AT THE TIME OF DISCHARGE: Heart rate 80, temperature 98.4, respiratory rate 20, pulse ox 97% on room air, blood pressure 122/84. General: Alert, nontoxic and well appearing. HEENT: Pupils equal, round, and reactive to light. No nystagmus. Moist mucosa. No pharyngeal exudates. Neck: No JVP , no lymphadenopathy. Chest: Irregular rhythm. No murmurs. PMI nondisplaced. Lungs: Clear bilaterally. Abdomen: Soft, nontender, nondistended. PD catheter in the left lower quadrant. No guarding or rebound. Bowel sounds normoactive in all quadrants. Extremities: No edema. No asterixis. HOSPITAL COURSE: 1. Small bowel obstruction: Mr. Bonner came to the emergency department with abdominal pain and nausea. On the day of admission, he had an abdominal CT scan , which showed a relatively high grade distal small bowel obstruction. A small amount of free intraperitoneal air likely due to the PD catheter. An NG tube was placed to suction and he was made n.p.o. with bowel rest. This is his second bowel obstruction. The most likely etiology of his obstruction is prior abdominal surgeries including a peritoneal dialysis catheter insertion and hernia repair. On the third day of admission, the NG tube was clamped and he had no residual fluid, so it was removed. He was advanced from a clear liquid diet to a full diet on the day of discharge. He has had bowel movements and has been passing flatus and is tolerating the diet without any nausea or vomiting. He is being discharged to home with with instruction to continue a bland diet and staying hydrated for the next several days. 2. Sepsis: On the second day of admission, he developed a fever and tachycardia. Fluid from his peritoneum was cultured as well as his blood and his urine. All of the cultures remained negative and the chest x-ray was unremarkable. A flu swab was also negative. He was treated empirically with ciprofloxacin and vancomycin for concern for peritonitis. Give his high risk for peritonitis and unremarkable workup thus far, I am completing a 7-day course of ciprofloxacin at renal dosing. 3. End-stage renal disease, on peritoneal dialysis. He continued PD himself while he was in the hospital. 4. Chronic urinary obstruction. He straight caths himself. 5. Anxiety: He is continued on his home dose of p.r.n. Ativan. FOLLOWUP NEEDED: He will see Dr. Ontiveros as scheduled. He is being discharged on 11/22/17 at 2:30 in the afternoon with a cab ride home. I have discussed the findings and plan with his , Jose D. [id number]/[facility] #: [id number] [facility]ark
--- NOTE | 2017-11-24 14:27 | ED ---
I, Gwen Thompson, scribed for Kai Shaw MD on 11/19/17 at 2108 . Progress - Progress Note Progress Note: ED physician evaluated pt with BECKY Blanc. Pt has no palpable hernias and no peritoneal signs. Course/Dx - Course Course Of Treatment: This 77-year-old male presents with abdominal pain for 3 days. He states the pain started after he ate something spicy. He states it was a sharp pain and now is a constant pain. He has never had this pain before. He states he does not feel that there is a dialysis type pain. He states he does peritoneal dialysis every night. He has not missed any dialysis. He states the past week has been having diarrhea. He states his stools have been watery. He admits to nausea that started the past 3 days. He denies any vomiting. He admits to decrease in appetite. He denies any fevers. He denies any chest pain. His shortness of breath is unchanged from baseline. He denies any flank pain. He is able to make urine after self catheterize. He has been taking hydrocodone without relief. on exam has tenderness greatest LLQ and mild RLQ. spoke with dr Ontiveros who said can precede with CT with oral and IV contrast. labs wbc 5.9. crp 35. h/h stable where has been. lipase is elevated than previously. kidney function is worst than previous. The documentation as recorded by the adenikeibJay fitzpatrick Stephanie accurately reflects the service I personally performed and the decisions made by me, Kai Shaw MD.
== END 2017-11-22 15:15 | disposition home or self-care (01) | DRG 871 ==
LOC: ED 15:48 → SSU 21:33
PROVIDERS: ADMIT Pediatrics; ATTEND Internal Medicine
PROC: 0D9670Z Drainage of Stomach with Drainage Device, Via Natural or Artificial Opening (ICD-10-PCS; principal; 2017-11-19)
PROC: 3E1M39Z Irrigation of Peritoneal Cavity using Dialysate, Percutaneous Approach (ICD-10-PCS; 2017-11-20)
DX: A41.9 Sepsis, unspecified organism (principal); N18.6 End stage renal disease; K56.609 Unspecified intestinal obstruction, unspecified as to partial versus complete obstruction; I12.0 Hypertensive chronic kidney disease with stage 5 chronic kidney disease or end stage renal disease; N13.8 Other obstructive and reflux uropathy; F41.9 Anxiety disorder, unspecified; N40.1 Benign prostatic hyperplasia with lower urinary tract symptoms; Z99.2 Dependence on renal dialysis; Z66 Do not resuscitate; Z79.899 Other long term (current) drug therapy; Z88.0 Allergy status to penicillin; Z87.891 Personal history of nicotine dependence
CPT/HCPCS: 36415; 71045; 74018; 74177; 80053; 80202; 81003; 81015; 83605; 83690; 83735; 84100; 85025; 86141; 87040; 87205; 87502; 89051; 90945; 99284; A9270-GY; G0257; J0744; J1644; J2060; J2270; J2405; J3370; Q9967

== ENCOUNTER 2017-12-03 14:20 | Inpatient (IN) | payer MEDICARE ==
[2017-12-03 16:18] LABS: ABS Basophils 0.1 10^3/ul (0-0.2); ABS Eosinophils 0.1 10^3/ul (0-0.6); ABS Lymphocytes 0.7 10^3/ul (1.0-4.8); ABS Monocytes 0.7 10^3/ul (0-0.8); ABS Neutrophils 7.8 10^3/ul (1.5-7.7); ABS Nucleated RBC 0 10^3/ul; Eosinophil % 1.4 % (0-6); Hematocrit 28 % (42-52); Hemoglobin 9.8 g/dl (14.0-18.0); Lymphocyte % 7.4 % (25-47); Mean Corpuscular HGB Conc 35 g/dl (31-36); Mean Corpuscular Hemoglobin 35 pg (27-31); Mean Corpuscular Volume 100 fL (80-94); Mean Platelet Volume 10 um3 (7.4-10.4); Nucleated Red Blood Cells % 0; Platelet Count 284 10^3/ul (150-450); Red Cell Distribution Width 13 % (10.5-15); Urine Appearance Clear; Urine Blood 1+ (Negative); Urine Color Straw; Urine Ketones Negative (Negative); Urine Protein Negative (Negative); Urine Specific Gravity 1.013 (1.010-1.030); Urine Urobilinogen Negative (Negative); White Blood Count 9.4 10^3/ul (3.5-10.8)
--- NOTE | 2017-12-03 16:18 | RAD ---
Indication: Weakness, cough, LEFT upper lung field bronchial. Comparison: November 19, 2017 chest radiograph and July 31, 2012 CT. Technique: Upright AP 1600 hours Report: Patchy mild consolidation at the bilateral mid to lower lung zones most prominent at the lung bases. Negative for volume loss to favor atelectasis. Elevated lung volumes and both minimal prominence and rarefaction of interstitial markings. Upper normal heart size. Unremarkable central pulmonary vasculature and mediastinal contours. IMPRESSION: The constellation of findings is suspicious for bronchopneumonia. Potential underlying obstructive lung disease.
[2017-12-03 16:21] LABS: INR 0.99 (0.77-1.02)
[2017-12-03 16:28] LABS: EGFR Non-African American 3.8 (>60)
[2017-12-03] MEDS ORDERED: Ciprofloxacin 400MG IVPREMIX(* 400 MG/200 ML BAG IVPB ONE (17:08)
[2017-12-03] MEDS ORDERED: Cefepime(*) 2 GM in NS 0.9% 50 ML* 50 ML IVPB ONE (17:08)
[2017-12-03] MEDS ORDERED: Sodium Bicarbonate (ANTACID)* 650 MG TAB PO PRN (18:20)
[2017-12-03] MEDS ORDERED: Piperacillin/Tazobac ADVAN(*) 3.375 GM in NS 0.9% 100 ML* 100 ML IVPB ONE (18:33)
[2017-12-03] MEDS ORDERED: Zosyn per Pharmacy* NOTE FOLLOW UP SCH (19:00)
--- NOTE | 2017-12-03 20:27 | HP ---
CC: Dr. Ontiveros * HISTORY AND PHYSICAL: DATE OF ADMISSION: 12/03/17 PRIMARY CARE PROVIDER: Dr. Ontiveros. CHIEF COMPLAINT: The patient was belligerent, did not want to live, refused to have dialysis. The patient's stated that he had been coughing ever since his discharge from the hospital on 11/22/17 for small bowel obstruction. HISTORY OF PRESENT ILLNESS: Brad Bonner is a 77-year-old male with history of end-stage renal disease, on peritoneal dialysis who was admitted on 11/19/17 , discharged on 11/22/17 for small bowel obstruction. In mid of his hospital stay, he was noted to have a fever and was started on broad-spectrum antibiotics and discharged on ciprofloxacin home which is per patient's . He apparently was not aware of and he did not take any. However, since his discharge he had been coughing. The patient's stated that over the course of past several weeks he had been getting more testy and confrontational and argumentative. During his emergency department evaluation, as per registered nurse's notes, the patient again was belligerent to the nursing staff. Apparently at some point, the patient made a statement that he did not want to live. The patient himself, once again, is confrontational during the interview. He is not answering questions in a straight-forward manner. Occasionally appears to pretend that he is not listening or hearing what is being said or questioned. He stated that he had a loose bowel movement, it was yesterday and he has history of irritable bowel movement with predominant diarrhea. He denies abdominal pain. When I asked him about the abdominal pain, he stated that "it would hurt if you put a hammer on it." Once again, the review of systems and overall interview is very limited with this patient currently. He appears to have pneumonia on his x-ray. He needs dialysis and he appears uremic. I suspect his mental status change is due to uremia. He is going to be placed on for admission due to that. PAST MEDICAL HISTORY: 1. End-stage renal disease, on peritoneal dialysis. 2. History of chronic urinary obstruction due to BPH. The patient self-caths himself up to 5 times a day. He apparently produces approximately 100 cc of urine every time he does it. 3. History of peritoneal dialysis catheter placed in the past x2. 4. History of hypertension. 5. History of small bowel obstruction in 2001 and another bout 2 weeks ago. 6. Irritable bowel syndrome with predominant diarrhea. 7. Anxiety. MEDICATIONS: Include: 1. Hydroxyzine 25 mg up to 4 times a day p.r.n. 2. Amlodipine 25 mg daily. 3. Ambien 10 mg at bedtime p.r.n. 4. Sodium bicarbonate 650 mg t.i.d. p.r.n. 5. Metoprolol succinate 25 mg daily. 6. Lisinopril 20 mg daily. 7. Lorazepam 1 mg up to 4 times a day p.r.n. 8. Folic acid and vitamin B complex 1 capsule daily. ALLERGIES: PENICILLIN. FAMILY HISTORY: Positive for mother who was from "failure to thrive." Father secondary to Alzheimer's. SOCIAL HISTORY: The patient lives at home with his . His is his healthcare proxy. He has a history of remote smoking history over 30 years ago. There is no history of alcohol or drug use. He is a retired assisted living care manager. He lives with his and at baseline he is independent from activities of daily living. PHYSICAL EXAMINATION GENERAL: The patient is a 77-year-old male who is argumentative during my interview. He is making unpleasant comments to his during the evaluation and tells her not to talk when he is talking. The patient is alert and oriented x2. VITAL SIGNS: Blood pressure 140/57, heart rate of 93 and regular, respiratory rate 20, oxygen saturation 98% on room air, temperature 98.2. HEENT: Head: Atraumatic, normocephalic. Eyes: Pupils equal, round, and reactive to light and accommodation. Oropharynx clear. Mucosa moist. NECK: Supple. No JVD. No bruits bilaterally. RESPIRATORY: Scant crackles in bilateral lower to mid lungs. CARDIOVASCULAR: Regular rate and rhythm. No murmur ABDOMEN: Soft and nontender. Bowel sounds present in all 4 quadrants. Peritoneal catheter in place with no evidence of skin infection in the surrounding area. EXTREMITIES: There is bilateral +2 pitting edema, right more than left. Pulses are +2 bilaterally. There is no clubbing, cyanosis. NEUROLOGIC: Speech clear. Cranial nerves II through XII grossly intact. Motor strength is 5/5 bilaterally. LABORATORY DATA: White blood cell count of 9.4, hemoglobin 9.8, hematocrit o28 , MCV of 100, platelets of 284,000. Sodium 128, potassium 4.7, chloride 97, carbon dioxide 17, anion gap of 14, BUN 89, creatinine 12.7. Liver function tests unremarkable. C-reactive protein of 13, total protein of 5.9, albumin of 2.9, lactic acid of 0.7. Urinalysis grossly unremarkable apart from +2 of glucose. Portable chest x-ray , impression: "The constellation of findings suspicious for bronchopneumonia. Potentially underlying obstructive lung disease." ASSESSMENT AND PLAN: 1. The patient's altered mental status and belligerence likely due to uremia. Apparently, he had been trying to refuse dialysis. He was last dialyzed yesterday though, as per patient's . At this point, the patient is going to have peritoneal dialysis today and during the day time tomorrow. I will also check the patient's ammonia level. 2. In regards to the pneumonia, at this time the patient received a dose of cefepime and ciprofloxacin in the emergency department. The patient is going to be placed on Zosyn for possibility of pneumonia. At this point, although he has some scant cough, I wonder if this is due to fluid congestion. At this point, the patient is nontoxic appearing. Once again, antibiotics are going to be continued for the time being. Please note that the patient had been afebrile. 3. For his obstructive uropathy, the patient was going to be allowed to self- catheterize on an as needed basis. 4. The patient's code status is full. 5. For DVT prophylaxis, the patient is going to be placed on heparin subcutaneously. 6. For hypertension, lisinopril and metoprolol is going to be continued. 7. For history of anxiety, his Atarax as well as lorazepam is going to be continued. TIME SPENT: Approximately 65 minutes were spent on admission of this patient, more than half that time was spent [id number] with the patient doing the interview and physical exam. [id number]/[facility] #: [id number] POLLO
[2017-12-03] MEDS: Zolpidem TAB* 10 MG PO PRN (20:57)
[2017-12-03] MEDS: Heparin VIAL(*) 5000 UNITS/ML VIAL (FIVE THOUSAND) SUBCUT SCH (21:43)
[2017-12-03] MEDS: hydrOXYzine HCL TAB* 25 MG PO PRN (21:58)
[2017-12-03] MEDS: LORazepam TAB(*) 1 MG PO PRN (21:58)
[2017-12-03] MEDS: Ondansetron INJ* 2 MG/ML VIAL IV PRN (22:02)
[2017-12-04] MEDS: ZOSYN 3.375 GM Q12H per EXTENDED INFUSION IVPB SCH ×4 (01:28→13:19)
[2017-12-04] MEDS: LORazepam TAB(*) 1 MG PO PRN ×4 (05:18→22:08)
[2017-12-04] MEDS: hydrOXYzine HCL TAB* 25 MG PO PRN ×4 (05:18→22:08)
[2017-12-04] MEDS: Heparin VIAL(*) 5000 UNITS/ML VIAL (FIVE THOUSAND) SUBCUT SCH ×3 (05:19→22:08)
[2017-12-04 06:11] LABS: ABS Basophils 0.1 10^3/ul (0-0.2); ABS Eosinophils 0.2 10^3/ul (0-0.6); ABS Monocytes 0.7 10^3/ul (0-0.8); ABS Neutrophils 6.5 10^3/ul (1.5-7.7); ABS Nucleated RBC 0 10^3/ul; Eosinophil % 2.1 % (0-6); Hematocrit 27 % (42-52); Hemoglobin 9.1 g/dl (14.0-18.0); Lymphocyte % 11.8 % (25-47); Mean Corpuscular HGB Conc 35 g/dl (31-36); Mean Corpuscular Hemoglobin 34 pg (27-31); Mean Corpuscular Volume 100 fL (80-94); Mean Platelet Volume 9 um3 (7.4-10.4); Nucleated Red Blood Cells % 0; Platelet Count 283 10^3/ul (150-450); Red Blood Count 2.66 10^6/ul (4.0-5.4); Red Cell Distribution Width 13 % (10.5-15); White Blood Count 8.5 10^3/ul (3.5-10.8)
[2017-12-04] MEDS: amLODIPine TAB* 5 MG PO SCH (08:11)
[2017-12-04] MEDS: Metoprolol Succinate XL TAB* 25 MG PO SCH (08:13)
[2017-12-04] MEDS: Lisinopril TAB* 10 MG PO SCH (08:13)
--- NOTE | 2017-12-04 13:23 | PN ---
Subjective Date of Service: 12/04/17 Interval History: Pt doesn't feel like talking. Feels tired, denies pain. Dialysis on during the visit Objective Active Medications: Amlodipine Besylate (Norvasc Tab*) 2.5 mg PO DAILY [facility] Last Admin: 12/04/17 08:11 Dose: 2.5 mg Heparin Sodium (Porcine) (Heparin Vial(*)) 5,000 units SUBCUT Q8HR [facility] Last Admin: 12/04/17 05:19 Dose: 5,000 units Hydroxyzine HCl (Atarax Tab*) 25 mg PO QID PRN PRN Reason: ANXIETY Last Admin: 12/04/17 10:53 Dose: 25 mg Piperacillin Sod/Tazobactam (Sod 3.375 gm/ Sodium Chloride) 100 mls @ 25 mls/ hr IVPB Q12H [facility] Last Admin: 12/04/17 13:19 Dose: 25 mls/hr Lisinopril (Prinivil Tab*) 20 mg PO DAILY [facility] Last Admin: 12/04/17 08:13 Dose: 20 mg Lorazepam (Ativan Tab(*)) 1 mg PO QID PRN PRN Reason: ANXIETY Last Admin: 12/04/17 10:53 Dose: 1 mg Metoprolol Succinate (Toprol Xl Tab*) 25 mg PO DAILY [facility] Last Admin: 12/04/17 08:13 Dose: 25 mg Ondansetron HCl (Zofran Inj*) 4 mg IV Q6H PRN PRN Reason: NAUSEA Last Admin: 12/03/17 22:02 Dose: 4 mg Pharmacy Consult (Zosyn Per Pharmacy*) 1 note FOLLOW UP .ZOSYN PER PHARMACY [facility] Sodium Bicarbonate (Sodium Bicarbonate (Antacid)*) 650 mg PO TID PRN PRN Reason: INDIGESTION Zolpidem Tartrate (Ambien Tab*) 10 mg PO BEDTIME PRN PRN Reason: SLEEP Last Admin: 12/03/17 20:57 Dose: 10 mg Vital Signs - 8 hr 12/04/17 12/04/17 12/04/17 07:29 08:00 08:14 Temperature 98.3 F Pulse Rate 79 Respiratory 16 18 18 Rate Blood Pressure 136/62 (mmHg) O2 Sat by Pulse 98 98 Oximetry 12/04/17 10:53 Temperature Pulse Rate Respiratory 16 Rate Blood Pressure (mmHg) O2 Sat by Pulse Oximetry Oxygen Devices in Use Now: None Appearance: 77 yo M in nAD, AAOx3, withdrawn and angry Eyes: No Scleral Icterus, PERRLA Ears/Nose/Mouth/Throat: NL Teeth, Lips, Gums, Mucous Membranes Moist Neck: NL Appearance and Movements; NL JVP, Trachea Midline Respiratory: Symmetrical Chest Expansion and Respiratory Effort, Clear to Auscultation Cardiovascular: NL Sounds; No Murmurs; No JVD, RRR Abdominal: NL Sounds; No Tenderness; No Distention, - - PD cath in place Lymphatic: No Cervical Adenopathy Extremities: No Edema, No Clubbing, Cyanosis Skin: No Rash or Ulcers, No Nodules or Sclerosis Neurological: Alert and Oriented x 3, NL Muscle Strength and Tone Result Diagrams: 12/04/17 05:44 12/04/17 05:44 Assess/Plan/Problems-Billing Assessment: 77 yo M with h/o ESRD on PD and U. retention(self caths 5x/day as per Dr. Ontiveros recommendation) presents feeling weak , not eating refuses to self cath, CXR shows possible PNA - Patient Problems (1) Pneumonia Comment: Acute,bacterial. pt rather asymptomatic. will cont Zosyn (2) Altered mental status Comment: As per d/w , pt had been upset ever since his dx of ESRD, but it has gotten worse. suspect uremia, d/w Dr. Ontiveros. It is very important for pt to self cath 5x/ day. He refused ly and is still making significant amount of urine. Asked RN to remind pt Q4H to self cath cont PD and observe for improvement ammonia will be checked (3) HTN (hypertension) Comment: controlled on current meds (4) Hyponatremia Comment: suspect mild dehydration, but it will be adjusted during PD sessions. (5) Anemia Comment: mild worsening of chronic -due to ESRD, no signs/symptoms of bleeding (6) DVT prophylaxis Comment: SQ heparin
[2017-12-04] MEDS: Zolpidem TAB* 10 MG PO PRN (22:08)
[2017-12-05] MEDS: ZOSYN 3.375 GM Q12H per EXTENDED INFUSION IVPB SCH ×4 (00:43→13:28)
--- NOTE | 2017-12-05 00:56 | PN ---
PROGRESS NOTE: DATE OF VISIT: 12/04/17 - ROOM #404 HISTORY: Mr. Bonner had contacted us yesterday in the dialysis unit about his feeling so terrible. He had missed his clinic visits in October because he felt poorly. He was complaining of weakness, fatigue, lethargy, anorexia, nausea, sleep disturbances, and neuromuscular irritability. On questioning him further, he had decreased the frequency of his self catheterization for bladder outlet obstruction. He was down to doing it only twice a day. We had depended upon his remaining hughes renal function as a major component of his dialysis prescription. He had been previously doing his catheterizations 5 times per day. He came in to the hospital and there was a question of pneumonia on his chest x-ray. He is feeling somewhat better this morning. He is afebrile. His blood pressure is 136/62, respirations 18, and pulse 79. His dialysate fluid has been clear. His white count is 8.5, hemoglobin 9.1, hematocrit 27. Sodium 126, potassium 4.5, chloride 96, total CO2 of 16, creatinine 12.28. He had typically been running creatinines in the 6 to 7 range for us as an outpatient. In October, he was 9.68 when he was in for his episode of bowel obstruction. IMPRESSION: I think he is uremic. He has developed a more significant metabolic acidosis. His creatinine is up significantly. I think a major component of this is his failure to do his self catheterization as prescribed. There is the possibility that he has sclerosed his peritoneum somewhat. We may need to adjust his dialysate regimen. We are going to more aggressively dialyze him here while in he is in the hospital and I strongly encouraged him to back to his previous method of 5 times a day self catheterization. I agree with buffering his acidosis with sodium bicarbonate; however, it may take a larger dose than 650 mg t.i.d. [id number]/[facility] #: [id number] [facility] HOSPITALMark
[2017-12-05] MEDS ORDERED: Diphenoxylat/Atrop 2.5-0.025M* 1 TAB PO PRN (05:06)
[2017-12-05] MEDS: Heparin VIAL(*) 5000 UNITS/ML VIAL (FIVE THOUSAND) SUBCUT SCH ×3 (05:27→23:10)
[2017-12-05] MEDS: Lisinopril TAB* 10 MG PO SCH (09:40)
[2017-12-05] MEDS: Lactobacillus Acidophilu (GG)* 1 CAP CAP PO SCH ×2 (09:40→23:10)
[2017-12-05] MEDS: Metoprolol Succinate XL TAB* 25 MG PO SCH (09:40)
[2017-12-05] MEDS: amLODIPine TAB* 5 MG PO SCH (09:41)
[2017-12-05] MEDS: LORazepam TAB(*) 1 MG PO PRN ×3 (09:41→19:37)
[2017-12-05] MEDS: hydrOXYzine HCL TAB* 25 MG PO PRN ×3 (09:41→19:36)
[2017-12-05] MEDS ORDERED: Loperamide CAP* 2 MG PO PRN (09:53)
[2017-12-05] MEDS: Diphenoxylat/Atrop 2.5-0.025M* 1 TAB PO SCH ×2 (10:22→23:10)
--- NOTE | 2017-12-05 11:08 | ED ---
Jay Chau Stephanie, scribed for Kai Shaw MD on 12/03/17 at 1545 . GI/ HPI - HPI Summary HPI Summary: The pt is a 77 y/o M BIBA to the ED with c/o lack of appetite for the last 4 days. Symptoms include decreased BM, weakness, LE edema, dizziness, diarrhea and chills. The pt denies fever and SOB. The pt states he is diagnosed with stage 5 renal disease. The pt states he has not eaten a meal in 4 days. Per , the pt was discharged 1 week ago from the hospital but has been unwilling to rise up from his chair at home. Per records, the pt said at his house that he "did not want to do this anymore" . It is reported that there are large amounts of weapons at home. - History of Current Complaint Chief Complaint: EDGeneral Time Seen by Provider: 12/03/17 15:11 Stated Complaint: GENERAL ILLNESS Hx Obtained From: Patient Onset/Duration: Started Days Ago - 4, Still Present Timing: Constant Pain Intensity: 0 Associated Signs and Symptoms: Positive: Dizziness, Weakness, Chills, Cough. Negative: Fever Aggravating Factor(s): Nothing Alleviating Factor(s): Nothing - Additional Pertinent History Primary Care Physician: SRIRAM - Allergy/Home Medications Allergies/Adverse Reactions: Allergies Allergy/AdvReac Type Severity Reaction Status Date / Time No Known Allergies Allergy Verified 12/03/17 14:34 PMH/Surg Hx/FS Hx/Imm Hx Endocrine/Hematology History: Denies: Hx Diabetes, Hx Thyroid Disease, Hx Unexplained Bleeding Cardiovascular History: Reports: Hx Hypertension, Other Cardiovascular Problems/ Disorders - states Afib on and off Denies: Hx Cardiac Arrest, Hx Cardiomegaly, Hx Congenital Heart Disease, Hx Congestive Heart Failure, Hx Coronary Artery Disease, Hx Hypercholesterolemia, Hx Hypotension, Hx Pacemaker/ICD, Hx Peripheral Vascular Disease, Hx Rheumatic Fever, Hx Syncope, Hx Valvular Heart Disease Respiratory History: Denies: Hx Asthma, Hx Chronic Bronchitis, Hx Chronic Obstructive Pulmonary Disease (COPD), Hx Cystic Fibrosis, Hx Lung Cancer, Hx Pleural Effusion, Hx Pneumonia, Hx Pulmonary Edema, Hx Pulmonary Embolism, Hx Seasonal Allergies, Hx Sleep Apnea, Other Respiratory Problems/Disorders GI History: Denies: Hx Cirrhosis, Hx Crohn's Disease, Hx Diverticulosis, Hx Gall Bladder Disease, Hx Gastroesophageal Reflux Disease, Hx Gastrointestinal Bleed, Hx Hiatal Hernia, Hx Irritable Bowel, Hx Jaundice, Hx Obstructive Bowel, Hx Ileostomy, Hx Pyloric Stenosis, Hx Ulcer, Other GI Disorders History: Reports: Hx Acute Renal Failure - PD dialysis, Hx Benign Prostatic Hyperplasia, Hx Dialysis, Hx Renal Disease, Other Problems/Disorders - obstructive uropathy Denies: Hx Chronic Renal Failure, Hx Kidney Infection, Hx Kidney Stones Musculoskeletal History: Denies: Hx Arthritis, Hx Osteoporosis Sensory History: Reports: Hx Contacts or Glasses Denies: Hx Cataracts, Hx Eye Injury, Hx Eye Prosthesis, Hx Glaucoma, Hx Macular Degeneration, Hx Vision Problem, Hx Deafness, Hx Hearing Aid, Hx Hearing Problem, Other Sensory Impairments Opthamlomology History: Reports: Hx Contacts or Glasses Denies: Hx Cataracts, Hx Eye Injury, Hx Eye Prosthesis, Hx Glaucoma, Hx Macular Degeneration, Hx Vision Problem, Other Sensory Impairments Neurological History: Denies: Hx Dementia, Hx Developmental Delay, Hx Headaches, Hx Migraine, Hx Seizures, Hx Spinal Cord Injury, Hx Transient Ischemic Attacks (TIA), Other Neuro Impairments/Disorders Psychiatric History: Reports: Hx Anxiety Denies: Hx Depression - Surgical History Surgery Procedure, Year, and Place: PD cath Hx Anesthesia Reactions: No Infectious Disease History: Yes Infectious Disease History: Denies: Hx Clostridium Difficile, Hx Hepatitis, Hx Human Immunodeficiency Virus (HIV), Hx Shingles, Hx Tuberculosis, Traveled Outside the [place] in Last 30 Days - Family History Known Family History: Positive: Hypertension, Other - prostate cancer Negative: Diabetes - Social History Occupation: Retired Lives: With Family Alcohol Use: None Substance Use Type: Reports: None Smoking Status (MU): Former Smoker Have You Smoked in the Last Year: No Review of Systems Positive: Chills. Negative: Fever Negative: Erythema Negative: Sore Throat Negative: Chest Pain Positive: Cough. Negative: Shortness Of Breath Positive: Diarrhea, Other - decreased ability to complete BM. Negative: Abdominal Pain, Vomiting, Nausea Negative: dysuria, hematuria Positive: Edema - LE bilaterally. Negative: Myalgia Negative: Rash Neurological: Other - dizziness Positive: Weakness All Other Systems Reviewed And Are Negative: Yes Physical Exam - Summary Physical Exam Summary: Constitutional: Well-developed, Well-nourished, Alert. (-) Distressed Skin: Warm, Dry HENT: Normocephalic; Atraumatic Eyes: Conjunctiva normal Neck: Musculoskeletal ROM normal neck. (-) JVD, (-) Stridor, (-) Tracheal deviation Cardio: Rhythm regular, rate normal, Heart sounds normal; Intact distal pulses; The pedal pulses are 2+ and symmetric. Radial pulses are 2+ and symmetric. (-) Murmur Pulmonary/Chest wall: Effort normal. (-) Respiratory distress, (-) Wheezes, (-) Rales, left upper lobe crackles. Abd: Soft, (-) Tenderness, (-) Distension, (-) Guarding, (-) Rebound Musculoskeletal: (-) Edema Lymph: (-) Cervical adenopathy Neuro: Alert, Oriented x3, normal. Psych: Mood and affect Normal Triage Information Reviewed: Yes Vital Signs On Initial Exam: Initial Vitals Temp Pulse Resp BP Pulse Ox 98.2 F 93 20 140/57 98 12/03/17 14:22 12/03/17 14:22 12/03/17 14:22 12/03/17 14:22 12/03/17 14:22 Vital Signs Reviewed: Yes Diagnostics - Vital Signs Vital Signs Temp Pulse Resp BP Pulse Ox 12/03/17 14:22 98.2 F 93 20 140/57 98 - Laboratory Result Diagrams: 12/03/17 15:54 12/03/17 15:54 Lab Statement: Any lab studies that have been ordered have been reviewed, and results considered in the medical decision making process. - Radiology CXR Xray Interpretation: No Acute Changes Radiology Interpretation Completed By: Radiologist - The constellation of findings is suspicious for bronchopneumonia. Potential underlying obstructive lung disease. GIGU Course/Dx - Course Course Of Treatment: The pts renal function is progressively worsening. Pt requires in patient nephrology consultation. Pt hospitalized in past 2 weeks and now has PNE. ED physician suspects multidrug resistant organism. Dr. Lepe agrees to admit the pt. - Diagnoses Provider Diagnoses: Healthcare-associated pneumonia, Uremia - Physician Notifications Discussed Care Of Patient With: Yaakov Lepe - Dr. Lepe agrees to admit the pt. Time Discussed With Above Provider: 17:19 Discharge - Discharge Plan Condition: Stable Disposition: ADMITTED TO [facility] Referrals: Juarez Ontiveros MD [Primary Care Provider] - The documentation as recorded by the Jay escobedo Stephanie accurately reflects the service I personally performed and the decisions made by me, Kai Shaw MD.
[2017-12-05 11:20] LABS: EGFR Non-African American 4.9 (>60)
--- NOTE | 2017-12-05 15:42 | PN ---
Subjective Date of Service: 12/05/17 Interval History: Pt agreed to Saucedo cath today. Appears a little less upset today.C/o diarrhea, no abd pain. Has had loose stools for several weeks. Requests Imodium Objective Active Medications: Amlodipine Besylate (Norvasc Tab*) 2.5 mg PO DAILY [facility] Last Admin: 12/05/17 09:41 Dose: 2.5 mg Diphenoxylate HCl/Atropine (Lomotil Tab*) 1 tab PO BID [facility] Last Admin: 12/05/17 10:22 Dose: Not Given Heparin Sodium (Porcine) (Heparin Vial(*)) 5,000 units SUBCUT Q8HR [facility] Last Admin: 12/05/17 13:28 Dose: 5,000 units Hydroxyzine HCl (Atarax Tab*) 25 mg PO QID PRN PRN Reason: ANXIETY Last Admin: 12/05/17 13:27 Dose: 25 mg Piperacillin Sod/Tazobactam (Sod 3.375 gm/ Sodium Chloride) 100 mls @ 25 mls/ hr IVPB Q12H [facility] Last Admin: 12/05/17 13:28 Dose: 25 mls/hr Lactobacillus Rhamnosus (Culturelle*) 1 cap PO BID [facility] Last Admin: 12/05/17 09:40 Dose: 1 cap Lisinopril (Prinivil Tab*) 20 mg PO DAILY [facility] Last Admin: 12/05/17 09:40 Dose: 20 mg Loperamide HCl (Imodium Cap*) 2 mg PO Q6H PRN PRN Reason: DIARRHEA Lorazepam (Ativan Tab(*)) 1 mg PO QID PRN PRN Reason: ANXIETY Last Admin: 12/05/17 13:27 Dose: 1 mg Metoprolol Succinate (Toprol Xl Tab*) 25 mg PO DAILY [facility] Last Admin: 12/05/17 09:40 Dose: 25 mg Ondansetron HCl (Zofran Inj*) 4 mg IV Q6H PRN PRN Reason: NAUSEA Last Admin: 12/03/17 22:02 Dose: 4 mg Pharmacy Consult (Zosyn Per Pharmacy*) 1 note FOLLOW UP .ZOSYN PER PHARMACY [facility] Sodium Bicarbonate (Sodium Bicarbonate (Antacid)*) 650 mg PO TID PRN PRN Reason: INDIGESTION Zolpidem Tartrate (Ambien Tab*) 10 mg PO BEDTIME PRN PRN Reason: SLEEP Last Admin: 12/04/17 22:08 Dose: 10 mg Vital Signs - 8 hr 12/05/17 12/05/17 12/05/17 07:39 08:00 09:18 Temperature 98.2 F Pulse Rate 93 Respiratory 18 18 18 Rate Blood Pressure 154/77 (mmHg) O2 Sat by Pulse 99 99 Oximetry 12/05/17 12/05/17 12/05/17 09:41 11:52 13:11 Temperature 97.9 F Pulse Rate 88 Respiratory 18 20 18 Rate Blood Pressure 142/43 (mmHg) O2 Sat by Pulse 98 Oximetry 12/05/17 12/05/17 13:27 15:32 Temperature 98.9 F Pulse Rate 85 Respiratory 18 20 Rate Blood Pressure 137/50 (mmHg) O2 Sat by Pulse 99 Oximetry Oxygen Devices in Use Now: None Appearance: 77 yo M in nAD, aAOx2, poor historian, BISHOP PAIUTE Eyes: No Scleral Icterus, PERRLA Ears/Nose/Mouth/Throat: NL Teeth, Lips, Gums, Mucous Membranes Moist Neck: NL Appearance and Movements; NL JVP, Trachea Midline Respiratory: Symmetrical Chest Expansion and Respiratory Effort, - - crackles at b/l bases Cardiovascular: NL Sounds; No Murmurs; No JVD, RRR Abdominal: NL Sounds; No Tenderness; No Distention, No Hepatosplenomegaly, - - PD cath in place Lymphatic: No Cervical Adenopathy Extremities: No Clubbing, Cyanosis, - - trace pedal edema b/l Skin: No Rash or Ulcers, No Nodules or Sclerosis Neurological: Alert and Oriented x 3, NL Muscle Strength and Tone Result Diagrams: 12/04/17 05:44 12/05/17 10:29 Microbiology and Other Data: Microbiology 12/05/17 13:30 Stool Gross Appearance - Final Stool Assess/Plan/Problems-Billing Assessment: 77 yo M with h/o ESRD on PD and U. retention(self caths 5x/day as per Dr. Ontiveros recommendation) presents feeling weak , not eating refuses to self cath, CXR shows possible PNA - Patient Problems (1) Pneumonia Comment: Acute,bacterial. pt rather asymptomatic. will cont Zosyn (2) Altered mental status Comment: As per d/w , pt had been upset ever since his dx of ESRD (5 years ago), but it has gotten worse. suspect uremia, d/w Dr. Ontiveros. pt used to self cath 5x/day, now agrees to Saucedo . He cont PD and observe for improvement ammonia level WNL (3) HTN (hypertension) Comment: controlled on current meds (4) Hyponatremia Comment: suspect mild dehydration, but it will be adjusted during PD sessions. (5) Anemia Comment: mild worsening of chronic -due to ESRD, no signs/symptoms of bleeding (6) Diarrhea Comment: chronic, no abd pain. will check stool cx, start probiotic cont imodium and Lomotil prn (7) DVT prophylaxis Comment: SQ heparin Status and Disposition: inpatient
[2017-12-05] MEDS: Ondansetron INJ* 2 MG/ML VIAL IV PRN (19:37)
[2017-12-06] MEDS: Heparin VIAL(*) 5000 UNITS/ML VIAL (FIVE THOUSAND) SUBCUT SCH ×3 (05:51→22:27)
[2017-12-06 06:19] LABS: ABS Basophils 0.2 10^3/ul (0-0.2); ABS Eosinophils 0.2 10^3/ul (0-0.6); ABS Lymphocytes 1.5 10^3/ul (1.0-4.8); ABS Monocytes 0.7 10^3/ul (0-0.8); ABS Neutrophils 4.9 10^3/ul (1.5-7.7); ABS Nucleated RBC 0 10^3/ul; Eosinophil % 2.1 % (0-6); Hematocrit 25 % (42-52); Hemoglobin 8.7 g/dl (14.0-18.0); Lymphocyte % 20.2 % (25-47); Mean Corpuscular HGB Conc 35 g/dl (31-36); Mean Corpuscular Hemoglobin 35 pg (27-31); Mean Corpuscular Volume 100 fL (80-94); Mean Platelet Volume 9 um3 (7.4-10.4); Nucleated Red Blood Cells % 0; Platelet Count 259 10^3/ul (150-450); Red Blood Count 2.48 10^6/ul (4.0-5.4); Red Cell Distribution Width 13 % (10.5-15); White Blood Count 7.5 10^3/ul (3.5-10.8)
[2017-12-06 06:36] LABS: EGFR Non-African American 5.3 (>60)
[2017-12-06] MEDS: Metoprolol Succinate XL TAB* 25 MG PO SCH (09:34)
[2017-12-06] MEDS: Diphenoxylat/Atrop 2.5-0.025M* 1 TAB PO SCH ×2 (09:34→19:44)
[2017-12-06] MEDS: Lactobacillus Acidophilu (GG)* 1 CAP CAP PO SCH ×2 (09:35→19:45)
[2017-12-06] MEDS: amLODIPine TAB* 5 MG PO SCH (09:35)
[2017-12-06] MEDS: Amoxicillin/Clavulanate TAB* 500 MG PO SCH (09:35)
[2017-12-06] MEDS: Lisinopril TAB* 10 MG PO SCH (09:35)
--- NOTE | 2017-12-06 12:00 | PN ---
Subjective Date of Service: 12/06/17 Interval History: Pt is feeling lousy. He is frustrated with his overall situation. He denies any pain. He continues to cough but does not bring up any sputum. He had a loose stool yesterday but no BMs today. Objective Active Medications: Amlodipine Besylate (Norvasc Tab*) 2.5 mg PO DAILY [facility] Last Admin: 12/06/17 09:35 Dose: 2.5 mg Amoxicillin/Clavulanate Potassium (Augmentin Tab*) 500 mg PO DAILY [facility] Last Admin: 12/06/17 09:35 Dose: 500 mg Diphenoxylate HCl/Atropine (Lomotil Tab*) 1 tab PO BID [facility] Last Admin: 12/06/17 09:34 Dose: 1 tab Heparin Sodium (Porcine) (Heparin Vial(*)) 5,000 units SUBCUT Q8HR [facility] Last Admin: 12/06/17 05:51 Dose: 5,000 units Hydroxyzine HCl (Atarax Tab*) 25 mg PO QID PRN PRN Reason: ANXIETY Last Admin: 12/05/17 19:36 Dose: 25 mg Lactobacillus Rhamnosus (Culturelle*) 1 cap PO BID [facility] Last Admin: 12/06/17 09:35 Dose: 1 cap Lisinopril (Prinivil Tab*) 20 mg PO DAILY [facility] Last Admin: 12/06/17 09:35 Dose: 20 mg Loperamide HCl (Imodium Cap*) 2 mg PO Q6H PRN PRN Reason: DIARRHEA Last Admin: 12/05/17 19:37 Dose: 2 mg Lorazepam (Ativan Tab(*)) 1 mg PO QID PRN PRN Reason: ANXIETY Last Admin: 12/05/17 19:37 Dose: 1 mg Metoprolol Succinate (Toprol Xl Tab*) 25 mg PO DAILY [facility] Last Admin: 12/06/17 09:34 Dose: 25 mg Ondansetron HCl (Zofran Inj*) 4 mg IV Q6H PRN PRN Reason: NAUSEA Last Admin: 12/05/17 19:37 Dose: 4 mg Pharmacy Consult (Zosyn Per Pharmacy*) 1 note FOLLOW UP .ZOSYN PER PHARMACY [facility] Sodium Bicarbonate (Sodium Bicarbonate (Antacid)*) 650 mg PO TID PRN PRN Reason: INDIGESTION Zolpidem Tartrate (Ambien Tab*) 10 mg PO BEDTIME PRN PRN Reason: SLEEP Last Admin: 12/04/17 22:08 Dose: 10 mg Vital Signs - 8 hr 12/06/17 12/06/17 12/06/17 07:21 08:00 09:34 Temperature 99.2 F Pulse Rate 85 Respiratory 16 16 16 Rate Blood Pressure 141/65 (mmHg) O2 Sat by Pulse 97 97 Oximetry Oxygen Devices in Use Now: None Appearance: Elderly male sitting up in bed, sleeping, awakens to voice, NAD Eyes: No Scleral Icterus Ears/Nose/Mouth/Throat: Mucous Membranes Moist Respiratory: Symmetrical Chest Expansion and Respiratory Effort, Clear to Auscultation, - - intermittent dry cough Cardiovascular: NL Sounds; No Murmurs; No JVD, RRR, No Edema Abdominal: NL Sounds; No Tenderness; No Distention Extremities: No Clubbing, Cyanosis Skin: No Nodules or Sclerosis Neurological: - - drowsy-seems like he is in a "fog" Result Diagrams: 12/06/17 05:53 12/06/17 05:53 Microbiology and Other Data: Microbiology 12/05/17 13:30 Stool Gross Appearance - Final Stool Assess/Plan/Problems-Billing Mr Bonner is a 77 yo M with h/o ESRD on PD and urinary retention(self caths 5x/ day as per Dr. Ontiveros recommendation) presents feeling weak , not eating refuses to self cath, CXR shows possible PNA. - Patient Problems (1) Altered mental status Current Visit: Yes Status: Acute Code(s): R41.82 - ALTERED MENTAL STATUS, UNSPECIFIED SNOMED Code(s): 575610199 Comment: The patient seems very drowsy and intermittently confused. This is the patient's biggest concern. I question if the PD is no longer effective. The patient will not consider HD. Will continue continuous PD for now and monitor for improvement. His BUN is trending down. (2) Pneumonia Current Visit: Yes Status: Acute Code(s): J18.9 - PNEUMONIA, UNSPECIFIED ORGANISM SNOMED Code(s): 209384018 Comment: The patient has a dry cough. Will start prednisone 20mg daily x 2 days and taper rapidly. ? reactive airways leading to his persistent cough. He has been changed to augmentin to complete a course of therapy. Stop the augmentin in 2 days. (3) Anemia Current Visit: Yes Status: Acute Code(s): D64.9 - ANEMIA, UNSPECIFIED SNOMED Code(s): 101489867 Comment: H/H now worse than baseline. No signs of bleeding. Will continue to monitor H/H. (4) Diarrhea Current Visit: Yes Status: Acute Code(s): R19.7 - DIARRHEA, UNSPECIFIED SNOMED Code(s): 29422286 Comment: This is a chronic problem. Will continue prn lomotil. No diarrhea today. (5) HTN (hypertension) Current Visit: Yes Status: Acute Code(s): I10 - ESSENTIAL (PRIMARY) HYPERTENSION SNOMED Code(s): 73769937 Comment: Decent control on home medication regimen. (6) ESRD on peritoneal dialysis Current Visit: Yes Status: Acute Code(s): N18.6 - END STAGE RENAL DISEASE; Z99.2 - DEPENDENCE ON RENAL DIALYSIS SNOMED Code(s): 65424590 Comment: Continue PD. As above I question if the patient may no longer responding to the PD as he once did. Will touch base with Dr. Ontiveros. (7) DVT prophylaxis Current Visit: Yes Status: Acute Code(s): WLT7360 - SNOMED Code(s): 350144932 Comment: SQ heparin (8) Full code status Current Visit: Yes Status: Acute Code(s): Z78.9 - OTHER SPECIFIED HEALTH STATUS SNOMED Code(s): 103725993 Status and Disposition: .
[2017-12-06] MEDS: Ondansetron ODT TAB* 4 MG PO PRN (13:11)
[2017-12-06] MEDS: LORazepam TAB(*) 1 MG PO PRN (19:44)
[2017-12-06] MEDS: Zolpidem TAB* 10 MG PO PRN (19:44)
[2017-12-06] MEDS: hydrOXYzine HCL TAB* 25 MG PO PRN (23:24)
[2017-12-07] MEDS: LORazepam TAB(*) 1 MG PO PRN ×4 (01:01→21:02)
[2017-12-07] MEDS: Heparin VIAL(*) 5000 UNITS/ML VIAL (FIVE THOUSAND) SUBCUT SCH ×3 (05:12→22:00)
[2017-12-07] MEDS: hydrOXYzine HCL TAB* 25 MG PO PRN ×2 (05:14→21:02)
[2017-12-07 06:04] LABS: Hematocrit 27 % (42-52); Hemoglobin 9.2 g/dl (14.0-18.0); Mean Corpuscular HGB Conc 35 g/dl (31-36); Mean Corpuscular Hemoglobin 35 pg (27-31); Mean Corpuscular Volume 100 fL (80-94); Mean Platelet Volume 9 um3 (7.4-10.4); Platelet Count 273 10^3/ul (150-450); Red Blood Count 2.67 10^6/ul (4.0-5.4); Red Cell Distribution Width 13 % (10.5-15); White Blood Count 7.8 10^3/ul (3.5-10.8)
[2017-12-07 06:23] LABS: EGFR Non-African American 5.9 (>60)
[2017-12-07] MEDS: Lactobacillus Acidophilu (GG)* 1 CAP CAP PO SCH ×2 (07:38→21:02)
[2017-12-07] MEDS: Metoprolol Succinate XL TAB* 25 MG PO SCH (07:39)
[2017-12-07] MEDS: amLODIPine TAB* 5 MG PO SCH (07:39)
[2017-12-07] MEDS: Diphenoxylat/Atrop 2.5-0.025M* 1 TAB PO SCH ×2 (07:39→21:02)
[2017-12-07] MEDS: Lisinopril TAB* 10 MG PO SCH (07:39)
[2017-12-07] MEDS: Amoxicillin/Clavulanate TAB* 500 MG PO SCH (07:39)
--- NOTE | 2017-12-07 16:22 | PN ---
Subjective Date of Service: 12/07/17 Interval History: Pt is feeling ok. He denies any pain. He is frustrated with the care in the hospital and does not understand that even though Dr. Ontiveros ordered certain medications months ago they can be held by the admitting provider if they are not felt to be appropriate. Objective Active Medications: Amlodipine Besylate (Norvasc Tab*) 2.5 mg PO DAILY [facility] Last Admin: 12/07/17 07:39 Dose: 2.5 mg Amoxicillin/Clavulanate Potassium (Augmentin Tab*) 500 mg PO DAILY [facility] Last Admin: 12/07/17 07:39 Dose: 500 mg Diphenoxylate HCl/Atropine (Lomotil Tab*) 1 tab PO BID [facility] Last Admin: 12/07/17 07:39 Dose: 1 tab Heparin Sodium (Porcine) (Heparin Vial(*)) 5,000 units SUBCUT Q8HR [facility] Last Admin: 12/07/17 12:49 Dose: Not Given Hydroxyzine HCl (Atarax Tab*) 25 mg PO QID PRN PRN Reason: ANXIETY Last Admin: 12/07/17 05:14 Dose: 25 mg Lactobacillus Rhamnosus (Culturelle*) 1 cap PO BID [facility] Last Admin: 12/07/17 07:38 Dose: 1 cap Lisinopril (Prinivil Tab*) 20 mg PO DAILY [facility] Last Admin: 12/07/17 07:39 Dose: 20 mg Lorazepam (Ativan Tab(*)) 1 mg PO QID PRN PRN Reason: ANXIETY Last Admin: 12/07/17 12:54 Dose: 1 mg Metoprolol Succinate (Toprol Xl Tab*) 25 mg PO DAILY [facility] Last Admin: 12/07/17 07:39 Dose: 25 mg Mupirocin (Bactroban 2 % Oint*) 1 applic TOPICAL DAILY [facility] Ondansetron HCl (Zofran Inj*) 4 mg IV Q6H PRN PRN Reason: NAUSEA Last Admin: 12/05/17 19:37 Dose: 4 mg Ondansetron HCl (Zofran Odt Tab*) 4 mg PO Q6H PRN PRN Reason: NAUSEA Last Admin: 12/06/17 13:11 Dose: 4 mg Pharmacy Consult (Zosyn Per Pharmacy*) 1 note FOLLOW UP .ZOSYN PER PHARMACY [facility] Sodium Bicarbonate (Sodium Bicarbonate (Antacid)*) 650 mg PO TID PRN PRN Reason: INDIGESTION Zolpidem Tartrate (Ambien Tab*) 10 mg PO BEDTIME PRN PRN Reason: SLEEP Last Admin: 12/06/17 19:44 Dose: 10 mg Vital Signs - 8 hr 12/07/17 12/07/17 12/07/17 09:16 11:03 12:54 Temperature 98.5 F Pulse Rate 82 Respiratory 16 17 16 Rate Blood Pressure 114/56 (mmHg) O2 Sat by Pulse 98 Oximetry 12/07/17 14:59 Temperature Pulse Rate Respiratory 12 Rate Blood Pressure (mmHg) O2 Sat by Pulse Oximetry Oxygen Devices in Use Now: None Appearance: Elderly male sitting up in bed, NAD Eyes: No Scleral Icterus Ears/Nose/Mouth/Throat: Mucous Membranes Moist Respiratory: Symmetrical Chest Expansion and Respiratory Effort, Clear to Auscultation Cardiovascular: NL Sounds; No Murmurs; No JVD, RRR, No Edema Abdominal: NL Sounds; No Tenderness; No Distention Extremities: No Clubbing, Cyanosis Skin: No Rash or Ulcers, No Nodules or Sclerosis Neurological: Alert and Oriented x 3 Result Diagrams: 12/07/17 05:07 12/07/17 05:07 Microbiology and Other Data: Microbiology 12/05/17 13:30 Stool Gross Appearance - Final Stool Assess/Plan/Problems-Billing Mr Bonner is a 77 yo M with h/o ESRD on PD and urinary retention(self caths 5x/ day as per Dr. Ontiveros recommendation) presents feeling weak , not eating refuses to self cath, CXR shows possible PNA. - Patient Problems (1) Altered mental status Current Visit: Yes Status: Acute Code(s): R41.82 - ALTERED MENTAL STATUS, UNSPECIFIED SNOMED Code(s): 833303343 Comment: Improved some today. He seems much more alert and appropriate today. ? secondary to continued improvement in BUN elevation. Continue to follow. (2) Pneumonia Current Visit: Yes Status: Acute Code(s): J18.9 - PNEUMONIA, UNSPECIFIED ORGANISM SNOMED Code(s): 773521944 Comment: The patient has a dry cough. Will start prednisone 20mg daily x 2 days and taper rapidly (was not started yesterday). ? reactive airways leading to his persistent cough. He has been changed to augmentin to complete a course of therapy. Stop the augmentin tomorrow. (3) Anemia Current Visit: Yes Status: Acute Code(s): D64.9 - ANEMIA, UNSPECIFIED SNOMED Code(s): 208898050 Comment: H/H improved today. Contineu to follow intermittently. (4) Diarrhea Current Visit: Yes Status: Acute Code(s): R19.7 - DIARRHEA, UNSPECIFIED SNOMED Code(s): 59163211 Comment: This is a chronic problem. Will continue prn lomotil. No diarrhea today. (5) HTN (hypertension) Current Visit: Yes Status: Acute Code(s): I10 - ESSENTIAL (PRIMARY) HYPERTENSION SNOMED Code(s): 62755970 Comment: Decent control on home medication regimen. (6) ESRD on peritoneal dialysis Current Visit: Yes Status: Acute Code(s): N18.6 - END STAGE RENAL DISEASE; Z99.2 - DEPENDENCE ON RENAL DIALYSIS SNOMED Code(s): 19379570 Comment: Continue PD. As above I question if the patient may no longer responding to the PD as he once did. Was not able to reach Dr. Ontiveros yesterday. (7) DVT prophylaxis Current Visit: Yes Status: Acute Code(s): AMD0053 - SNOMED Code(s): 476313896 Comment: SQ heparin (8) Full code status Current Visit: Yes Status: Acute Code(s): Z78.9 - OTHER SPECIFIED HEALTH STATUS SNOMED Code(s): 896406957 Status and Disposition: .
[2017-12-07] MEDS: Zolpidem TAB* 10 MG PO PRN (21:02)
[2017-12-07] MEDS: predniSONE TAB* 20 MG PO SCH (22:00)
[2017-12-08] MEDS: Heparin VIAL(*) 5000 UNITS/ML VIAL (FIVE THOUSAND) SUBCUT SCH ×3 (05:48→21:13)
[2017-12-08] MEDS: LORazepam TAB(*) 1 MG PO PRN ×2 (07:38→17:03)
[2017-12-08] MEDS: predniSONE TAB* 20 MG PO SCH (07:38)
[2017-12-08] MEDS: Metoprolol Succinate XL TAB* 25 MG PO SCH (07:39)
[2017-12-08] MEDS: Lactobacillus Acidophilu (GG)* 1 CAP CAP PO SCH ×2 (07:39→21:14)
[2017-12-08] MEDS: Diphenoxylat/Atrop 2.5-0.025M* 1 TAB PO SCH ×2 (07:39→21:14)
[2017-12-08] MEDS: amLODIPine TAB* 5 MG PO SCH (07:39)
[2017-12-08] MEDS: Lisinopril TAB* 10 MG PO SCH (07:39)
[2017-12-08] MEDS: Amoxicillin/Clavulanate TAB* 500 MG PO SCH (07:39)
[2017-12-08] MEDS: Mupirocin 2% OINT* TUBE TOPICAL SCH (10:06)
--- NOTE | 2017-12-08 14:24 | PN ---
Subjective Date of Service: 12/08/17 Interval History: Patient has no medical complaints today. Is very unhappy with service in hospital and is refusing blood draws x2 today. Patient is more confused today according to nursing notes but is A/Ox3, but gets easily side-tracked and is consistently hostile in coversation. Denies F/C, CP, SOB, N/V, abdominal pain, back pain, diarrhea, constipation, abdominal pain, or other pain. Family History: Unchanged from Admission Social History: Unchanged from Admission Past Medical History: Unchanged from Admission Objective Active Medications: Amlodipine Besylate (Norvasc Tab*) 2.5 mg PO DAILY [facility] Last Admin: 12/08/17 07:39 Dose: 2.5 mg Diphenoxylate HCl/Atropine (Lomotil Tab*) 1 tab PO BID [facility] Last Admin: 12/08/17 07:39 Dose: 1 tab Heparin Sodium (Porcine) (Heparin Vial(*)) 5,000 units SUBCUT Q8HR [facility] Last Admin: 12/08/17 12:17 Dose: Not Given Hydroxyzine HCl (Atarax Tab*) 25 mg PO QID PRN PRN Reason: ANXIETY Last Admin: 12/07/17 21:02 Dose: 25 mg Lactobacillus Rhamnosus (Culturelle*) 1 cap PO BID [facility] Last Admin: 12/08/17 07:39 Dose: 1 cap Lisinopril (Prinivil Tab*) 20 mg PO DAILY [facility] Last Admin: 12/08/17 07:39 Dose: 20 mg Lorazepam (Ativan Tab(*)) 1 mg PO QID PRN PRN Reason: ANXIETY Last Admin: 12/08/17 07:38 Dose: 1 mg Metoprolol Succinate (Toprol Xl Tab*) 25 mg PO DAILY [facility] Last Admin: 12/08/17 07:39 Dose: 25 mg Mupirocin (Bactroban 2 % Oint*) 1 applic TOPICAL DAILY [facility] Last Admin: 12/08/17 10:06 Dose: Not Given Ondansetron HCl (Zofran Inj*) 4 mg IV Q6H PRN PRN Reason: NAUSEA Last Admin: 12/05/17 19:37 Dose: 4 mg Ondansetron HCl (Zofran Odt Tab*) 4 mg PO Q6H PRN PRN Reason: NAUSEA Last Admin: 12/06/17 13:11 Dose: 4 mg Prednisone (Deltasone Tab*) 10 mg PO DAILY [facility] Sodium Bicarbonate (Sodium Bicarbonate (Antacid)*) 650 mg PO TID PRN PRN Reason: INDIGESTION Zolpidem Tartrate (Ambien Tab*) 10 mg PO BEDTIME PRN PRN Reason: SLEEP Last Admin: 12/07/17 21:02 Dose: 10 mg Vital Signs - 8 hr 12/08/17 12/08/17 12/08/17 07:19 07:38 07:39 Temperature 98.7 F Pulse Rate 95 Respiratory 20 14 14 Rate Blood Pressure 110/48 (mmHg) O2 Sat by Pulse 97 Oximetry 12/08/17 12/08/17 12/08/17 07:45 10:06 11:18 Temperature 98.1 F Pulse Rate 84 Respiratory 16 16 20 Rate Blood Pressure 132/53 (mmHg) O2 Sat by Pulse 97 Oximetry Oxygen Devices in Use Now: None Appearance: Patient is a 77yo male who appears stated age and is sitting in the bed in NAD. Eyes: No Scleral Icterus, PERRLA Ears/Nose/Mouth/Throat: NL Teeth, Lips, Gums, Clear Oropharnyx, Mucous Membranes Moist Neck: NL Appearance and Movements; NL JVP, Trachea Midline Respiratory: Symmetrical Chest Expansion and Respiratory Effort, Clear to Auscultation Cardiovascular: RRR, No Edema, - - Grade 2/6 holosystolic murmur heard best at apex. Abdominal: NL Sounds; No Tenderness; No Distention, No Hepatosplenomegaly, - - No suprapubic or CVA tenderness. Extremities: No Edema, No Clubbing, Cyanosis Skin: No Rash or Ulcers, No Nodules or Sclerosis Neurological: Alert and Oriented x 3, NL Sensation, NL Muscle Strength and Tone , - - CN II-XII intact. Result Diagrams: 12/07/17 05:07 12/07/17 05:07 Microbiology and Other Data: Microbiology 12/05/17 13:30 Stool Gross Appearance - Final Stool Assess/Plan/Problems-Billing Mr Bonner is a 77 yo M with h/o ESRD on PD and urinary retention(self caths 5x/ day as per Dr. Ontiveros recommendation) presents feeling weak , not eating refuses to self cath, CXR shows possible PNA. Persistent AMS even on constant PD. - Patient Problems (1) Altered mental status Current Visit: Yes Status: Acute Code(s): R41.82 - ALTERED MENTAL STATUS, UNSPECIFIED SNOMED Code(s): 110954469 Comment: Worse per nursing notes. A/Ox3 but not appropriate and feels persecuted by staff. Unable to check BUN today. (2) Pneumonia Current Visit: Yes Status: Acute Code(s): J18.9 - PNEUMONIA, UNSPECIFIED ORGANISM SNOMED Code(s): 262318023 Comment: The patient has a persistent dry cough. Prednisone tapered to 10mg daily today. Augmentin stopped due to completed course. (3) Anemia Current Visit: Yes Status: Acute Code(s): D64.9 - ANEMIA, UNSPECIFIED SNOMED Code(s): 819293385 Comment: Unable to recheck today. No signs of bleeding. Agreeable to recheck tomorrow. Likely from ESRD. Asymptomatic. (4) Diarrhea Current Visit: Yes Status: Acute Code(s): R19.7 - DIARRHEA, UNSPECIFIED SNOMED Code(s): 74001513 Comment: This is a chronic problem. Will continue prn lomotil. No diarrhea today. (5) ESRD on peritoneal dialysis Current Visit: Yes Status: Acute Code(s): N18.6 - END STAGE RENAL DISEASE; Z99.2 - DEPENDENCE ON RENAL DIALYSIS SNOMED Code(s): 13786728 Comment: Continue PD. Will recheck BMP in AM and then touch base with Dr. Ontiveros about options if patient cannot be relied on to self-cath. (6) HTN (hypertension) Current Visit: Yes Status: Acute Code(s): I10 - ESSENTIAL (PRIMARY) HYPERTENSION SNOMED Code(s): 36420988 Comment: Normotensive on home meds. (7) Hyponatremia Current Visit: Yes Status: Acute Code(s): E87.1 - HYPO-OSMOLALITY AND HYPONATREMIA SNOMED Code(s): 20317839 Comment: Resolved. (8) Anxiety Current Visit: No Status: Acute Code(s): F41.9 - ANXIETY DISORDER, UNSPECIFIED SNOMED Code(s): 60739704 Comment: Continue Ativan, Hydroxazine (9) DVT prophylaxis Current Visit: Yes Status: Acute Code(s): FYU4317 - SNOMED Code(s): 050260964 Comment: SQ heparin (10) Full code status Current Visit: Yes Status: Acute Code(s): Z78.9 - OTHER SPECIFIED HEALTH STATUS SNOMED Code(s): 818291760 Status and Disposition: Inpatient.
[2017-12-08] MEDS: Ondansetron ODT TAB* 4 MG PO PRN (17:02)
[2017-12-08] MEDS: Zolpidem TAB* 10 MG PO PRN (21:14)
[2017-12-09 05:51] LABS: ABS Basophils 0.1 10^3/ul (0-0.2); ABS Eosinophils 0.1 10^3/ul (0-0.6); ABS Lymphocytes 1.6 10^3/ul (1.0-4.8); ABS Monocytes 0.5 10^3/ul (0-0.8); ABS Neutrophils 4.1 10^3/ul (1.5-7.7); ABS Nucleated RBC 0 10^3/ul; Eosinophil % 1.1 % (0-6); Hematocrit 25 % (42-52); Hemoglobin 8.6 g/dl (14.0-18.0); Lymphocyte % 25.2 % (25-47); Mean Corpuscular HGB Conc 35 g/dl (31-36); Mean Corpuscular Hemoglobin 35 pg (27-31); Mean Corpuscular Volume 100 fL (80-94); Mean Platelet Volume 9 um3 (7.4-10.4); Nucleated Red Blood Cells % 0; Platelet Count 230 10^3/ul (150-450); Red Blood Count 2.48 10^6/ul (4.0-5.4); Red Cell Distribution Width 13 % (10.5-15); White Blood Count 6.4 10^3/ul (3.5-10.8)
[2017-12-09] MEDS: Heparin VIAL(*) 5000 UNITS/ML VIAL (FIVE THOUSAND) SUBCUT SCH (05:52)
[2017-12-09] MEDS ORDERED: Magnesium Sulfate 1 GM IV* 1 GM/100 ML BAG IV ONE (06:58)
[2017-12-09] MEDS ORDERED: Potassium Chlor TAB* 20 MEQ TAB.ER PO ONE (06:59)
[2017-12-09 07:42] VITALS: BP 113/62
[2017-12-09] MEDS ORDERED: Magnesium Oxide TAB* 400 MG PO ONE (08:35)
[2017-12-09] MEDS ORDERED: predniSONE TAB* 10 MG PO SCH (09:00)
[2017-12-09] MEDS: Lisinopril TAB* 10 MG PO SCH (09:20)
[2017-12-09] MEDS: Metoprolol Succinate XL TAB* 25 MG PO SCH (09:24)
[2017-12-09] MEDS: Diphenoxylat/Atrop 2.5-0.025M* 1 TAB PO SCH (09:24)
[2017-12-09] MEDS: Mupirocin 2% OINT* TUBE TOPICAL SCH (09:30)
[2017-12-09] MEDS: Lactobacillus Acidophilu (GG)* 1 CAP CAP PO SCH (09:55)
[2017-12-09] MEDS: amLODIPine TAB* 5 MG PO SCH (09:55)
--- NOTE | 2017-12-11 01:13 | DS ---
CC: Dr. Ontiveros * DISCHARGE SUMMARY: DATE OF ADMISSION: 12/03/17 DATE OF DISCHARGE: 12/09/17 PRIMARY CARE PROVIDER AND RECORDING CLERK: Dr. Ontiveros. MY ATTENDING WHILE IN THE HOSPITAL: Dr. Lian Terry * (DICTATED BY BECKY BENITEZ) PRIMARY DISCHARGE DIAGNOSES: 1. End-stage renal disease with uremia. 2. Altered mental status. 3. Urinary obstruction due to benign prostatic hyperplasia. 4. Community-acquired pneumonia. SECONDARY DISCHARGE DIAGNOSES: 1. Hypertension. 2. Irritable bowel syndrome with predominant diarrhea. 3. Anxiety. 4. Cognitive decline. 5. Small bowel obstruction in 2001 and in November of 2017. Workup for fever of unknown origin, which showed no pathology. STUDIES DONE WHILE IN THE HOSPITAL: Chest x-ray from 12/03/17 read as constellation of findings suspicious for bronchopneumonia, potential underlying obstructive lung disease. MEDICATIONS AT DISCHARGE: 1. Lorazepam 1 mg p.o. four times a day as needed for anxiety. 2. Folic acid and vitamin B complex 1 tab p.o. at bedtime. 3. Lisinopril 20 mg p.o. daily. 4. Metoprolol succinate 25 mg p.o. daily. 5. Hydroxyzine 25 mg p.o. four times a day as needed for anxiety. 6. Amlodipine 2.5 mg p.o. daily. 7. Zolpidem 10 mg p.o. at bedtime as needed. 8. Sodium bicarbonate 650 mg p.o. 3 times daily as needed. 9. Lactobacillus acidophilus 1 cap p.o. b.i.d. New medication at discharge: Lactobacillus acidophilus. Medications discontinued at discharge: None. HOSPITAL COURSE: This is a brief summary of the patient's presentation. For more details, please see the history and physical from Dr. Fauzia Mercado on . In brief, the patient is a 77-year-old male, who was previously admitted to this institution on 11/19/17 to 11/22/17 with a small bowel obstruction, which was treated with antibiotics and ciprofloxacin as well as bowel rest and NG tube, after which the patient's symptoms resolved. However, the patient states he has been coughing since he was discharged and that he has been getting more confrontational and argumentative over the course of several weeks as well as cognitive decline over the course of about a year, according to his . The patient had continued diarrhea and was found to be having possible pneumonia on his x-ray and had kidney function significant with creatinine of approximately 12 and BUN of 89, which is increased from his baseline approximately of 6 to 8 and 50 to 70 respectively. The patient was admitted to the hospital, started on continuous peritoneal dialysis as well as Zosyn for his pneumonia. The patient was seen in consultation by Dr. Juarez Ontiveros. The patient had no fever. The patient's cough is nonproductive and had no other complaints. It was believed the patient had stopped catheterizing himself 5 times daily due to his imposition on his lifestyle and that he may have sclerosed his peritoneum making his peritoneal dialysis less effective. The patient was continued on continuous peritoneal dialysis, which brought his creatinine and BUN down. It is believed that the patient had altered mental status due to his uremia. The patient continued to be increasingly confused from his baseline according to his but was improving over the course of the day based on his documentation. The patient had agreed to Saucedo catheter on 12/05/17 because he refused to straight catheterize himself as instructed at home. The patient continued to have dry cough. The patient was mildly anemic, slightly under his baseline of around 10, at 9 to 8.6 likely due to dilution. The patient was also hyponatremic and slightly acidotic. The patient had only slightly elevated CRP on admission. The patient improved day to day. The patient was started on prednisone on 12/06/17 for his cough, which resolved in the course of 2 days on prednisone 20 mg daily. The patient completed a 5-day course of Zosyn plus Augmentin for his presumed pneumonia. The patient's mental status improved even though he was continually acerbic and confrontational with the staff. He was entirely alert and oriented on 12/08/17 and was able to converse and answer all questions posed to him, which was significant improvement per the nursing staff. The patient's creatinine leveled out around 8.6 on 12/09/17 and the patient was very anxious to go home and had no other complaints. It was discussed with the patient's , who still had concerns about his altered mental status, which has been deteriorating for approximately a year slowly and that she does not feel that she is getting outpatient help sufficient for this. Visiting nurse services were set up, though it was unclear what the patient would accept them, but the was appreciate of us attempting to give her more aide at home. The patient was deemed to have capacity and the and the patient were not interested in halfway or assisted living at this time. It was recommended that the have him go another primary care provider, who is not athletic training internship , as they would have more experience dealing with his possible dementia. PHYSICAL EXAM ON THE DAY OF DISCHARGE: General: The patient is a 77-year-old male, who appears stated age and sitting comfortably in bed, in no acute distress. Vitals signs at the time of discharge, temperature 97.6, pulse rate 88 , respiratory rate 18, oxygen saturation 99% on room air, blood pressure 137/ 73. HEENT: Head: Normocephalic, atraumatic. Sclerae anicteric. No conjunctival injection. Nasal mucosa moist. Oral mucosa moist. No pharyngeal erythema, discharge, or exudates. Neck: Supple, nontender. No lymphadenopathy. No carotid bruits auscultated. Cardiac: Regular rate and rhythm. Grade 2/6 holosystolic murmur heard best at the apex without radiation. No other adventitious heart sounds. S1, S2 present. No lower extremity edema noted. Pulses 2+ in bilateral dorsalis pedis, posterior tibialis, and radial areas. Respiratory: Clear to auscultation bilaterally. No wheezes, rales, or rhonchi. Good air exchange bilaterally. No cough. Abdomen: Soft, nontender, nondistended. Bowel sounds present. Normoactive in all 4 quadrants. No hepatosplenomegaly. No abdominal bruits auscultated. Peritoneal dialysis catheter present and covered with dressing discharge. Genitourinary: No suprapubic tenderness, no CVA tenderness. Saucedo catheter in place. Skin: Clean, dry, and intact. No rash. Neuro: Cranial nerves II through XII intact. No focal deficits. No weakness. Psychiatric: The patient is somewhat confrontational but occasionally very pleasant and humorous. LABORATORY DATA ON THE DAY OF ADMISSION: White blood count 6.4, hemoglobin 8.6. Sodium 129, potassium 3.3, chloride 95, carbon dioxide 23, anion gap 11, creatinine 8.63, BUN 47, glucose 94, magnesium 1.5. DISCHARGE PLAN: The patient will be discharged to home under the care of his . This case was discussed with Dr. Ontiveros and he said that he will undergo membrane permeability studies in the next couple of days with his home care nurse through [facility]. The patient will be set up with visiting nurse services to assist with his with his increasingly complex medical care. The patient 's recommended to establish with an alternative primary care provider for care of his probable worsening dementia. The patient should undergo peritoneal dialysis and self- catheterize 5 times a day as previously discussed with Dr. Ontiveros. The patient is in agreement with this at this time and the patient should return to hospital for any alarming symptoms such as severe altered mental status, chest pain, shortness of breath, uncontrolled diarrhea, or other alarming symptoms. The patient should follow up with Dr. Ontiveros within 1 week after discharge. The patient should engage in activity as tolerated. A renal diet limiting his sodium and potassium. TIME SPENT: Approximately 75 minutes was spent on this discharge, 40 of which was spent [id number] with the patient and his discussing treatment plan and obtaining history and physical. BECKY BENITEZ [id number]/[facility] #: [id number] [place]
== END 2017-12-09 12:00 | disposition home health service (06) | DRG 682 ==
LOC: ED 14:20 → MED 18:17
PROVIDERS: ADMIT Internal Medicine; ATTEND Hospitalist
PROC: 3E1M39Z Irrigation of Peritoneal Cavity using Dialysate, Percutaneous Approach (ICD-10-PCS; 2017-12-03)
PROC: 0T9B70Z Drainage of Bladder with Drainage Device, Via Natural or Artificial Opening (ICD-10-PCS; principal; 2017-12-05)
DX: I12.0 Hypertensive chronic kidney disease with stage 5 chronic kidney disease or end stage renal disease (principal); J15.9 Unspecified bacterial pneumonia; E87.2 Acidosis; N18.6 End stage renal disease; R41.81 Age-related cognitive decline; E87.1 Hypo-osmolality and hyponatremia; D63.1 Anemia in chronic kidney disease; N13.8 Other obstructive and reflux uropathy; N40.1 Benign prostatic hyperplasia with lower urinary tract symptoms; F41.9 Anxiety disorder, unspecified; K58.0 Irritable bowel syndrome with diarrhea; Z82.49 Family history of ischemic heart disease and other diseases of the circulatory system; Z80.42 Family history of malignant neoplasm of prostate; Z87.891 Personal history of nicotine dependence; Z88.0 Allergy status to penicillin; Z99.2 Dependence on renal dialysis; Z81.8 Family history of other mental and behavioral disorders
CPT/HCPCS: 36415; 71045; 80048; 80053; 81003; 81015; 82140; 83605; 83735; 84100; 84484; 85025; 85027; 85610; 85730; 86140; 87040; 87045; 87046; 87899; 90945; 99283; A9270-GY; G0257; J0692; J0744; J1644; J2405; J2543; J3475; J7512